=== PATIENT | female | born 1965 | race Caucasian/White ===

== ENCOUNTER 2016-09-09 00:48 | Emergency (ER) | payer OTHER ==
[2016-09-09 01:23] VITALS: BP 140/100; PULSE 87; TEMP 98; BMI 37.3
--- NOTE | 2016-09-09 02:05 | PDOC ---
History of Present Illness - General Chief Complaint: Alcohol intoxication Stated Complaint: ALCOHOL Time Seen by Provider: 09/09/16 01:06 - History of Present Illness Initial Comments: 09/09/16 02:35 presents intoxicated by EMS chronic etoh use had been drinking all day. also admits to benzo use without complaints fhx: non-contrib ros: reviewed and otherwise negative o/e intoxicated no diaphoresis no stigmata of head trauma neck nontender rrr cta abd nontender no extremity tenderness a+ox3 ambulatory in ED. a/p alcohol abuse observed in ED until sober ride home arranged Past History - Past Medical History Allergies/Adverse Reactions: Allergies Allergy/AdvReac Type Severity Reaction Status Date / Time morphine Allergy Mild Itching Verified 09/09/16 01:02 Home Medications: Ambulatory Orders Trazodone HCl [Desyrel -] 200 mg PO HS #7 tablet 03/08/14 Ramipril [Altace] 5 mg PO DAILY #0 capsule 09/14/14 Amlodipine Besylate [Norvasc -] 10 mg PO DAILY #30 tablet 05/14/15 Metoprolol Succinate [Toprol XL -] 100 mg PO DAILY 07/10/15 Oxycodone HCl [Roxicodone -] 15 mg PO BID 06/22/16 Pregabalin [Lyrica -] 50 mg PO BID 06/22/16 Anemia: No Asthma: No Cancer: No Cardiac Disorders: Yes (STOKE) CVA: No COPD: No CHF: No Dementia: No Diabetes: No GI Disorders: Yes (abdominal pain) Disorders: Yes (GALLSTONES) HTN: Yes Hypercholesterolemia: Yes Liver Disease: No Psychiatric Problems: Yes Seizures: No Thyroid Disease: Yes (NODULES - NO [place]) Other medical history: ANXIETY - Surgical History Abdominal Surgery: No Appendectomy: Yes Cardiac Surgery: No Cholecystectomy: No Lung Surgery: No Neurologic Surgery: Yes (NECK SX) Orthopedic Surgery: No - Reproductive History Tubal Ligation: Yes - Psycho/Social/Smoking Cessation Hx Anxiety: No Suicidal Ideation: No Smoking Status: Yes Smoking History: Current every day smoker Have you smoked in the past 12 months: Yes Number of Cigarettes Smoked Daily: 20 Cigars Per Day: 20 Information on smoking cessation initiated: Yes 'Breaking Loose' booklet given: 07/10/15 Hx Alcohol Use: Yes (DAILY) Drug/Substance Use Hx: Yes (MARIJUANA) Substance Use Type: None Hx Substance Use Treatment: No *Physical Exam - Vital Signs Last Vital Signs Temp Pulse Resp BP Pulse Ox 98 F 87 18 140/100 97 09/09/16 01:17 09/09/16 01:17 09/09/16 01:17 09/09/16 01:09/09/16 01:17 *DC/Admit/Observation/Transfer Diagnosis at time of Disposition: Alcohol abuse - Discharge Dispostion Disposition: HOME Condition at time of disposition: Stable
== END 2016-09-09 02:20 | disposition home or self-care (01) ==
LOC: FER 00:48
DX: F10.120 Alcohol abuse with intoxication, uncomplicated (principal); F17.210 Nicotine dependence, cigarettes, uncomplicated; F41.9 Anxiety disorder, unspecified; I10 Essential (primary) hypertension; Z86.73 Personal history of transient ischemic attack (TIA), and cerebral infarction without residual deficits; E07.9 Disorder of thyroid, unspecified; E78.00 Pure hypercholesterolemia, unspecified
CPT/HCPCS: 99281-25

== ENCOUNTER 2017-01-09 08:30 | Inpatient (IN) | payer OTHER ==
[2017-01-09] MEDS ORDERED: SODIUM CHLORIDE 1,000 ML IV STA ×3 (08:41→10:41)
--- NOTE | 2017-01-09 08:45 | PDOC ---
History of Present Illness - General Chief Complaint: Seizure Stated Complaint: POSSIBLE SEIZURE Time Seen by Provider: 01/09/17 08:33 History Source: Patient, EMS, Old Records Exam Limitations: Clinical Condition - History of Present Illness Initial Comments: 01/09/17 08:45 51-year-old female with history of HTN, nephrolithiasis, chronic opiate use/ abuse and seizure disorder presents to the emergency department by EMS who states that the patient this morning was found on the ground by her son foaming at the mouth and presumably to have had a seizure activity although no seizure was witnessed. History is limited as the son is not at the hospital and the patient is confused and mildly agitated. Past History - Past Medical History Allergies/Adverse Reactions: Allergies Allergy/AdvReac Type Severity Reaction Status Date / Time morphine Allergy Mild Itching Verified 09/09/16 01:02 Home Medications: Ambulatory Orders Trazodone HCl [Desyrel -] 200 mg PO HS #7 tablet 03/08/14 Ramipril [Altace] 5 mg PO DAILY #0 capsule 09/14/14 Amlodipine Besylate [Norvasc -] 10 mg PO DAILY #30 tablet 05/14/15 Metoprolol Succinate [Toprol XL -] 100 mg PO DAILY 07/10/15 Oxycodone HCl [Roxicodone -] 15 mg PO BID 06/22/16 Pregabalin [Lyrica -] 50 mg PO BID 06/22/16 Anemia: No Asthma: No Cancer: No Cardiac Disorders: Yes (STOKE) CVA: No COPD: No CHF: No Dementia: No Diabetes: No GI Disorders: Yes (abdominal pain) Disorders: Yes (GALLSTONES) HTN: Yes Hypercholesterolemia: Yes Liver Disease: No Psychiatric Problems: Yes Seizures: No Thyroid Disease: Yes (NODULES - NO [place]) - Surgical History Abdominal Surgery: No Appendectomy: Yes Cardiac Surgery: No Cholecystectomy: No Lung Surgery: No Neurologic Surgery: Yes (NECK SX) Orthopedic Surgery: No - Reproductive History Tubal Ligation: Yes - Psycho/Social/Smoking Cessation Hx Anxiety: No Suicidal Ideation: No Smoking Status: Yes Smoking History: Current every day smoker Have you smoked in the past 12 months: Yes Number of Cigarettes Smoked Daily: 20 Cigars Per Day: 20 'Breaking Loose' booklet given: 07/10/15 Hx Alcohol Use: Yes (DAILY) Drug/Substance Use Hx: Yes (MARIJUANA) Substance Use Type: None Hx Substance Use Treatment: No Review of Systems - Review of Systems Able to Perform ROS?: No (altered mental status) *Physical Exam - Physical Exam Comments: 01/09/17 08:44 GENERAL: Well developed, well nourished. Awake and alert. Uncooperative and confused. HEENT: Normocephalic, atraumatic. PERRLA, EOMI. No conjunctival pallor. Sclera are non- icteric. Mucous membranes are extremely dry appearing. Oropharynx is clear. NECK: Supple. Full ROM. No JVD. No lymphadenopathy. CARDIOVASCULAR: Regular rate and rhythm. No murmurs, rubs, or gallops. Distal pulses are 2+ and symmetric. PULMONARY: No evidence of respiratory distress. Lungs clear to auscultation bilaterally. No wheezing, rales or rhonchi. ABDOMINAL: Soft. Non-tender. Non-distended. No rebound or guarding. No organomegaly. Normoactive bowel sounds. MUSCULOSKELETAL Normal range of motion at all joints. No bony deformities or tenderness. No CVA tenderness. EXTREMITIES: No cyanosis. No clubbing. No edema. No calf tenderness. SKIN: Warm and dry. Normal capillary refill. No rashes. No jaundice. NEUROLOGICAL: Alert, awake, but confused and mildly agitated. Grossly non-focal exam. PSYCHIATRIC: Cooperative. Good eye contact. Appropriate mood and affect. ED Treatment Course - LABORATORY CBC & Chemistry Diagram: 01/09/17 09:10 01/09/17 09:10 Medical Decision Making - Medical Decision Making 01/09/17 08:42 51-year-old female with history of questionable seizure disorder and chronic opiate use presents to the emergency department with altered mental status and reported unwitnessed seizure at home today. Blood glucose in the field was 111. The patient appears dehydrated on clinical exam. Differential diagnosis includes but is not limited to: Postictal state status post seizure, intoxication, electrolyte abnormality, dehydration, traumatic brain injury, toxic/metabolic derangement. Plan: 1. CT head 2. EKG 3. Labs 4. IV fluids for hydration 5. Observe and reevaluate 01/09/17 10:43 Addendum: Labs are reviewed and are noted in the EMR. CT scan head shows no acute intracranial pathology. Chest x-ray was negative. EKG was negative as well. The CK is elevated at 1200. The patient is written for IV fluids for hydration for rhabdo. The plan is to admit to the hospital for IV fluid hydration, monitoring of the CK and neuro checks. *DC/Admit/Observation/Transfer Diagnosis at time of Disposition: Altered mental status, Rhabdomyolysis - Discharge Dispostion Condition at time of disposition: Stable Admit: Yes
[2017-01-09 09:50] LABS: BASOPHIL 0.1 % (0-2.0); MCH 33.1 pg (25.7-33.7); MCHC 33.9 g/dl (32.0-36.0); MEAN CELL VOLUME 97.5 fl (80-96); MEAN PLT VOLUME 9.3 fl (7.5-11.1); NEUTROPHILS 88.1 % (42.8-82.8); PLATELET COUNT 281 K/MM3 (134-434); RDW 13.2 % (11.6-15.6); WHITE BLOOD COUNT 17.2 K/mm3 (4.0-10.8)
[2017-01-09 09:59] LABS: PH,URINE 5.5 (4.5-8); URINE APPEARANCE Clear; URINE BILIRUBIN Negative (NEGATIVE); URINE GLUCOSE (UA) Trace (NEGATIVE); URINE KETONE Negative (NEGATIVE); URINE LEUK ESTERASE Negative (NEGATIVE); URINE NITRITE Negative (NEGATIVE); URINE PROTEIN Negative (NEGATIVE); URINE UROBILINOGEN 0.2 E.U/dl (0.2-1.0)
[2017-01-09 10:11] LABS: ALK PHOS 75 U/L (32-92); ANION GAP 12 (8-16); BILIRUBIN,TOTAL 0.4 mg/dl (0.2-1.0); CALCIUM 8.9 mg/dl (8.4-10.2); CO2 27 mmol/L (22-28); CREATININE 1.1 mg/dl (0.6-1.3); GLUCOSE,RANDOM 106 mg/dl (74-106); SGOT/AST 38 U/L (10-42); SGPT/ALT 24 U/L (10-40); TOT PROT 7.1 g/dl (6.4-8.3)
[2017-01-09 10:13] LABS: ALCOHOL < 5.0 mg/dl (0-5)
[2017-01-09 10:16] LABS: CPK(DFH) 1186 IU/L (26-140)
[2017-01-09 10:37] LABS: CK MB 27.7 ng/ml (0.3-4.0); TROPONIN I (DFP) 0.15 ng/ml (0.03-0.50)
[2017-01-09 10:53] LABS: URINE COLOR YELLOW
[2017-01-09 11:36] LABS: URINE MARIJUANA THC POSITIVE ng/ml (CUTOFF=50)
[2017-01-09] MEDS ORDERED: ONDANSETRON 4 MG/2 ML VIAL ONE (11:37)
[2017-01-09] MEDS ORDERED: ONDANSETRON 4 MG/2 ML VIAL IVPUSH ONE (11:43)
[2017-01-09 13:34] LABS: URINE BLOOD Trace-intact (NEGATIVE)
[2017-01-09] MEDS ORDERED: DEXTROSE 5%-NORMAL SALINE 1,000 ML IV SCH (13:45)
[2017-01-09] MEDS ORDERED: METHADONE HCL 10 MG TABLET ONE (15:04)
[2017-01-09] MEDS ORDERED: METHADONE 10 MG, METHADONE 40 MG PO ONE (15:15)
[2017-01-09 15:30] VITALS: BMI 35.2
[2017-01-09 15:37] LABS: BASOPHIL 0.2 % (0-2.0); EOSINOPHIL 0.1 % (0-4.5); MCH 33.2 pg (25.7-33.7); MCHC 34.2 g/dl (32.0-36.0); MEAN CELL VOLUME 97.2 fl (80-96); NEUTROPHILS 85.6 % (42.8-82.8); PLATELET COUNT 220 K/MM3 (134-434); RDW 13.4 % (11.6-15.6); WHITE BLOOD COUNT 12.8 K/mm3 (4.0-10.8)
[2017-01-09] MEDS ORDERED: amLODIPine BESYLATE 10 MG TABLET (FP) PO ONE (15:45)
[2017-01-09] MEDS ORDERED: METOPROLOL SUCCINATE 100 MG TAB.SR.24H (FP) PO ONE (15:45)
[2017-01-09] MEDS ORDERED: RAMIPRIL 5 MG CAPSULE (FP) PO ONE (15:45)
[2017-01-09 16:05] LABS: TROPONIN I (DFP) 0.23 ng/ml (0.03-0.50)
[2017-01-09 16:40] LABS: CK MB 45.8 ng/ml (0.3-4.0)
--- NOTE | 2017-01-09 17:52 | EKG ---
Test Reason : Blood Pressure : / mmHG Vent. Rate : 079 BPM Atrial Rate : 079 BPM P-R Int : 154 ms QRS Dur : 088 ms QT Int : 416 ms P-R-T Axes : 033 024 -11 degrees QTc Int : 477 ms NORMAL SINUS RHYTHM NONSPECIFIC T WAVE ABNORMALITY PROLONGED QT WHEN COMPARED WITH ECG OF 12-SEP-2014 11:39, T WAVE INVERSION MORE EVIDENT IN ANTERIOR LEADS Confirmed by MD DENNIS, NIK ([id number]) on 01/09/2017 5:51:46 PM Referred By: NEREYDA MARTINEZ Confirmed By:NIK COLLINS MD
[2017-01-09] MEDS ORDERED: NALOXONE HCL 0.4 MG/ML VIAL IVPUSH ONE (20:58)
[2017-01-09] MEDS ORDERED: ONDANSETRON 4 MG/2 ML VIAL IVPB ONE (21:15)
[2017-01-09 21:26] LABS: ALLENS TEST POSITIVE; ART PUNCT SITE RIGHT RADIAL; ARTERIAL BLD GAS O2 SATURATION 93.9 % (90-98.9); ARTERIAL BLOOD GAS BASE EXCESS -3.7 meq/l (-2-2); ARTERIAL BLOOD GAS PO2 82 mmHg (80-100); LPM/O2% 21%; PT. ON O2? NO; TYPE OF O2 ROOM AIR
[2017-01-09 21:27] LABS: ARTERIAL BLOOD GAS pH 7.19 (7.35-7.45)
--- NOTE | 2017-01-09 21:46 | HP ---
CHIEF COMPLAINT: Altered mental status PCP: Justyna [phone] HISTORY OF PRESENT ILLNESS: This is a 51 year old female with a significant past medical history of chronic opioid abuse on methadone and possible seizure history who was found by her son on the floor with foam around mouth, presumed post ictal. She was brought to the ED by ambulance. Pt was confused and mildly agitated in the ED. Upon exam on floor, pt noted with sonorous respirations, minimally arousable and confused. Oxygen saturation 50s-60s on room air. Given oxygen with some improvement in oxygenation. ABG done; results below. ER course was notable for: (1) CT head without acute changes (2) CK 1186, repeat 2040 (3) trop 0.15, repeat 0.23 (4) WBC 17.2, repeat 12.8 Recent Travel: pt denies PAST MEDICAL HISTORY: HTN nephrolithiasis chronic opiate abuse, on methadone CVA-nonhemorrhagic 2014 PAST SURGICAL HISTORY: appendectomy cervical spine fusion Social History: Smokinppd Alcohol: pt denies daily use, states she drink 2-3 drinks a few times/week Drugs: oxycodone, last use 13 days ago; marijuana daily Family History: mother-A&W father- age 68-heart 1 brother/2 sisters A&W Allergies morphine Allergy (Mild, Verified 09/09/16 01:02) Itching NEW ALLERGY HOME MEDICATIONS: 3 Medication Instructions Recorded Trazodone HCl [Desyrel -] 200 mg PO HS #7 tablet 03/08/14 Ramipril [Altace] 5 mg PO DAILY #0 capsule 09/14/14 Pregabalin [Lyrica -] 50 mg PO BID 06/22/16 Methadone [Dolophine -] 50 mg PO DAILY 01/09/17 REVIEW OF SYSTEMS CONSTITUTIONAL: Absent: fever, chills, diaphoresis, generalized weakness, malaise, loss of appetite, weight change HEENT: Absent: rhinorrhea, nasal congestion, throat pain, throat swelling, difficulty swallowing, mouth swelling, ear pain, eye pain, visual changes CARDIOVASCULAR: Absent: chest pain, syncope, palpitations, irregular heart rate, lightheadedness , peripheral edema RESPIRATORY: Absent: cough, shortness of breath, dyspnea with exertion, orthopnea, wheezing, stridor, hemoptysis GASTROINTESTINAL: Absent: abdominal pain, abdominal distension, nausea, vomiting, diarrhea, constipation, melena, hematochezia GENITOURINARY: Absent: dysuria, frequency, urgency, hesitancy, hematuria, flank pain, genital pain MUSCULOSKELETAL: Absent: myalgia, arthralgia, joint swelling, back pain, neck pain SKIN: Absent: rash, itching, pallor HEMATOLOGIC/IMMUNOLOGIC: Absent: easy bleeding, easy bruising, lymphadenopathy, frequent infections ENDOCRINE: Absent: unexplained weight gain, unexplained weight loss, heat intolerance, cold intolerance NEUROLOGIC: Present: mental status changes, seizure Absent: headache, focal weakness or paresthesias, dizziness, unsteady gait, bladder or bowel incontinence PSYCHIATRIC: Absent: anxiety, depression, suicidal or homicidal ideation, hallucinations. PHYSICAL EXAMINATION Vital Signs - 24 hr 3 01/09/17 01/09/17 01/09/17 14:22 15:18 16:35 Temperature 98.6 F Pulse Rate 82 76 Pulse Rate [ 85 Apical] Respiratory 18 16 Rate Blood Pressure 134/118 145/94 Blood Pressure 135/94 [Left Arm] O2 Sat by Pulse 97 94 L Oximetry (%) 3 01/09/17 20:12 Temperature Pulse Rate Pulse Rate [ Apical] Respiratory Rate Blood Pressure Blood Pressure [Left Arm] O2 Sat by Pulse 96 Oximetry (%) GENERAL: Arousable but pt immediately falls back in slumber, with sonorous repirations, able to follow simple one step commands before falling back asleep , not answering questions appropriately HEAD: Normal with no signs of trauma. EYES: Pupils equal, round and reactive to light, extraocular movements intact, sclera anicteric, conjunctiva clear. No lid lag. EARS, NOSE, THROAT: Ears normal, nares patent, oropharynx clear without exudates. Moist mucous membranes. NECK: Normal range of motion, supple without lymphadenopathy, JVD, or masses. LUNGS: Breath sounds equal, clear to auscultation bilaterally. No wheezes, and no crackles. No accessory muscle use. + upper airway noise, bradypnea noted HEART: Regular rate and rhythm, normal S1 and S2 without murmur, rub or gallop. ABDOMEN: Soft, nontender, not distended, normoactive bowel sounds, no guarding, no rebound, no masses. No hepatomegaly or splenomegaly. MUSCULOSKELETAL: Normal range of motion at all joints. No bony deformities or tenderness. No CVA tenderness. UPPER EXTREMITIES: 2+ pulses, warm, well-perfused. No cyanosis. No clubbing. No peripheral edema. LOWER EXTREMITIES: 2+ pulses, warm, well-perfused. No calf tenderness. No peripheral edema. NEUROLOGICAL: Cranial nerves II-XII intact. Normal speech. Normal gait. PSYCHIATRIC: Cooperative. Good eye contact. Appropriate mood and affect. SKIN: Warm, dry, normal turgor, no rashes or lesions noted, normal capillary refill. Laboratory Results - last 24 hr 3 01/09/17 01/09/17 01/09/17 09:10 09:10 09:10 WBC 17.2 H RBC 4.45 Hgb 14.7 D Hct 43.4 D MCV 97.5 H MCHC 33.9 RDW 13.2 Plt Count 281 MPV 9.3 Neutrophils % 88.1 H Lymphocytes % 7.2 L D Monocytes % 4.6 Eosinophils % 0.0 D Basophils % 0.1 Anticoagulation Therapy Puncture Site ABG pH ABG pCO2 at Pt Temp ABG pO2 at Pt Temp ABG HCO3 ABG O2 Sat (Measured) ABG O2 Content ABG Base Excess Winston Test O2 Delivery Device Oxygen Flow Rate Vent Mode Vent Rate Mechanical Rate Pressure Support Vent Sodium Potassium Chloride Carbon Dioxide Anion Gap BUN Creatinine Creat Clearance w eGFR Random Glucose Lactic Acid Calcium Total Bilirubin AST ALT Alkaline Phosphatase Creatine Kinase Creatine Kinase Index CK-MB (CK-2) Troponin I Total Protein Albumin Lipase Urine Color Yellow Urine Appearance Clear Urine pH 5.5 Ur Specific Guthrie 1.020 Urine Protein Negative Urine Glucose (UA) Trace Urine Ketones Negative Urine Blood Trace-intact Urine Nitrite Negative Urine Bilirubin Negative Urine Urobilinogen 0.2 e.u/dl Ur Leukocyte Esterase Negative Opiates Screen Positive Methadone Screen Positive Barbiturate Screen Negative Phenytoin Phencyclidine Screen Negative Ur Amphetamines Screen Negative MDMA (Ecstasy) Screen Negative Benzodiazepines Screen Negative Cocaine Screen Negative U Marijuana (THC) Screen Positive Alcohol, Quantitative 3 01/09/17 01/09/17 01/09/17 01/09/17 09:10 09:10 09:10 10:00 WBC RBC Hgb Hct MCV MCHC RDW Plt Count MPV Neutrophils % Lymphocytes % Monocytes % Eosinophils % Basophils % Anticoagulation Therapy Puncture Site ABG pH ABG pCO2 at Pt Temp ABG pO2 at Pt Temp ABG HCO3 ABG O2 Sat (Measured) ABG O2 Content ABG Base Excess Winston Test O2 Delivery Device Oxygen Flow Rate Vent Mode Vent Rate Mechanical Rate Pressure Support Vent Sodium 140 Potassium 5.2 H Chloride 101 Carbon Dioxide 27 Anion Gap 12 BUN 18 D Creatinine 1.1 D Creat Clearance w eGFR 51.96 Random Glucose 106 Lactic Acid 1.6 Calcium 8.9 Total Bilirubin 0.4 D AST 38 D ALT 24 D Alkaline Phosphatase 75 Creatine Kinase 1186 H D Creatine Kinase Index CK-MB (CK-2) 27.7 H Troponin I 0.15 Total Protein 7.1 Albumin 4.0 Lipase 23 Urine Color Urine Appearance Urine pH Ur Specific Guthrie Urine Protein Urine Glucose (UA) Urine Ketones Urine Blood Urine Nitrite Urine Bilirubin Urine Urobilinogen Ur Leukocyte Esterase Opiates Screen Methadone Screen Barbiturate Screen Phenytoin < 2.5 L Phencyclidine Screen Ur Amphetamines Screen MDMA (Ecstasy) Screen Benzodiazepines Screen Cocaine Screen U Marijuana (THC) Screen Alcohol, Quantitative < 5.0 3 01/09/17 01/09/17 01/09/17 14:18 14:18 20:50 WBC 12.8 H RBC 4.13 Hgb 13.7 Hct 40.1 MCV 97.2 H MCHC 34.2 RDW 13.4 Plt Count 220 D MPV 9.0 Neutrophils % 85.6 H Lymphocytes % 9.3 D Monocytes % 4.8 Eosinophils % 0.1 D Basophils % 0.2 O2 Delivery Device Y Creatine Kinase 2040 H D CK-MB (CK-2) 45.8 H Troponin I 0.23 3 01/09/17 01/09/17 01/09/17 16:00 20:50 21:20 WBC RBC Hgb Hct MCV MCHC RDW Plt Count MPV Neutrophils % Lymphocytes % Monocytes % Eosinophils % Basophils % Anticoagulation Therapy Puncture Site ABG pH ABG pCO2 at Pt Temp ABG pO2 at Pt Temp ABG HCO3 ABG O2 Sat (Measured) ABG O2 Content ABG Base Excess Winston Test O2 Delivery Device Y Oxygen Flow Rate Vent Mode Vent Rate Mechanical Rate Pressure Support Vent Sodium 138 Potassium 4.8 Chloride 104 Carbon Dioxide 25 Anion Gap 9 BUN 15 Creatinine 1.0 Creat Clearance w eGFR Random Glucose 151 H D Lactic Acid Calcium 8.4 Total Bilirubin AST ALT Alkaline Phosphatase Creatine Kinase Creatine Kinase Index Cancelled CK-MB (CK-2) Troponin I Total Protein Albumin Lipase Urine Color Urine Appearance Urine pH Ur Specific Guthrie Urine Protein Urine Glucose (UA) Urine Ketones Urine Blood Urine Nitrite Urine Bilirubin Urine Urobilinogen Ur Leukocyte Esterase Opiates Screen Methadone Screen Barbiturate Screen Phenytoin Phencyclidine Screen Ur Amphetamines Screen MDMA (Ecstasy) Screen Benzodiazepines Screen Cocaine Screen U Marijuana (THC) Screen Alcohol, Quantitative 3 01/09/17 21:23 WBC RBC Hgb Hct MCV MCHC RDW Plt Count MPV Neutrophils % Lymphocytes % Monocytes % Eosinophils % Basophils % Anticoagulation Therapy Y Puncture Site Right radial ABG pH 7.19 L* ABG pCO2 at Pt Temp 71.4 H* ABG pO2 at Pt Temp 82 ABG HCO3 26.0 ABG O2 Sat (Measured) 93.9 ABG O2 Content 17.5 ABG Base Excess -3.7 L Winston Test Positive O2 Delivery Device Room air Oxygen Flow Rate 21% Vent Mode Y Vent Rate Y Mechanical Rate Y Pressure Support Vent Y Sodium Potassium Chloride Carbon Dioxide Anion Gap BUN Creatinine Creat Clearance w eGFR Random Glucose Lactic Acid Calcium Total Bilirubin AST ALT Alkaline Phosphatase Creatine Kinase Creatine Kinase Index CK-MB (CK-2) Troponin I Total Protein Albumin Lipase Urine Color Urine Appearance Urine pH Ur Specific Guthrie Urine Protein Urine Glucose (UA) Urine Ketones Urine Blood Urine Nitrite Urine Bilirubin Urine Urobilinogen Ur Leukocyte Esterase Opiates Screen Methadone Screen Barbiturate Screen Phenytoin Phencyclidine Screen Ur Amphetamines Screen MDMA (Ecstasy) Screen Benzodiazepines Screen Cocaine Screen U Marijuana (THC) Screen Alcohol, Quantitative Imaging CT of the head without IV contrast HISTORY: 51-year-old female with mental status TECHNIQUE: Multiaxial CT scan of the head without IV contrast was obtained from the base of the skull to the vertex. Comparison is made to prior study dated September 12 2014 FINDINGS: Study is limited by patient motion. There is an old left frontoparietal infarct with secondary encephalomalacia. There is a lacunar infarct in the left frontal boeyr radiata. The sulcal pattern and ventricles systems are within normal limits. Evaluation of the inferior aspect of the frontal, middle and posterior fossa is limited due to streak artifacts. The visualized portions of the bony skull, mastoid air cells and paranasal sinuses are unremarkable. IMPRESSION: No CT evidence of acute intracranial pathology. 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 CHEST X-RAY PORTABLE* Altered mental status. Single portable chest x-ray. Comparison study May 11, 2015. No evidence of pneumonia, CHF, pleural effusion or pneumothorax. No evidence of widening of the superior mediastinum. Uncoiled thoracic aorta. The cardiac silhouette is borderline enlarged. Surgical clips noted in the left axillary region. Intact visualized osseous structures. Impression. No evidence of active pulmonary disease. ECG NSR Rate 82, QTC 474, nonspecific T wave changes, Inversion in 3, aVF, V3, flattenting V4, V5 ASSESSMENT/PLAN: 51yF with PMH HTN, chronic opioid abuse, CVA, ? seizure d/o, nephrolithiasis presented to the ED with AMS. She has been admitted for further workup. Pulm Respiratory failure - oxygen given, sat up to low 90s but pt remains confused and minimally arousable, not protecting airway - ABG done - naloxone 0.4mg given as pt falls back to sleep and not protecting airway, sat dropping back into 80s. - hypoxia resolved after naloxone - ABG with pH 7.18, hypercapnea- pt initially refused BiPAP but finally acquiesced, 12/5, oxygen 40%, satting 100% with same, oxygen reduced to 98% - transfer to [facility] for closer monitoring - repeat ABG 1-2H post BiPAP initiation. Neuro AMS - ? seizure activity at home - acute episode AMS improved s/p narcan, monitor closely for further deterioration - will obtain neurology consult Neuropathy - cont prescribed home lyrica Cardio Elevated troponin - troponin trending up. Pt denies chest pain, palpitations when fully awake. Will cont to trend, likely due to demand in setting of acute illness - pt states she is not on norvasc or toprol at home. - cardiology consult HTN - BP improved with ramipril, cont same M/S rhabdomyolysis - cont IVF, ? due to seizure activity - monitor urine output detox opioid dependence - narcan given due to respiratory failure with good response. Pt pupils dilated and vomited. zofran given for same. Pt now alert and oriented - pt adamantly denies taking anything other than prescribed methadone here. Denies receiving her dose at home this am - hold methadone for now, pt states she has been on methadone x 13 days only. - detox consult DVT PPX - heparin 5000u TID FEN - NS @ 100cc/hr - repeat BMP in AM - regular diet in am if alert Dispo: Pt currently requires inpatient management of her emergent condition. Visit type - Emergency Visit Emergency Visit: Yes ED Registration Date: 01/09/17 Care time: The patient presented to the Emergency Department on the above date and was hospitalized for further evaluation of their emergent condition. - New Patient This patient is new to me today: Yes Date on this admission: 01/10/17 - Critical Care Critical Care patient: Yes Total Critical Care Time (in minutes): 60 Critical Care Statement: The care of this patient involved high complexity decision making to prevent further life threatening deterioration of the patient 's condition and/or to evalute & treat vital organ system(s) failure or risk of failure.
[2017-01-09 21:50] LABS: CALCIUM 8.4 mg/dl (8.4-10.2); COCKROFT - GAULT 95.4975
[2017-01-09] MEDS: PREGABALIN 50 MG CAPSULE PO SCH (21:58)
[2017-01-09 22:06] LABS: BASOPHIL 0.5 % (0-2.0); EOSINOPHIL 0.1 % (0-4.5); MCHC 33.6 g/dl (32.0-36.0); MEAN CELL VOLUME 98.1 fl (80-96); NEUTROPHILS 82.8 % (42.8-82.8); PLATELET COUNT 244 K/MM3 (134-434); RDW 13.2 % (11.6-15.6); WHITE BLOOD COUNT 15.6 K/mm3 (4.0-10.8)
[2017-01-09 22:09] LABS: MAGNESIUM 1.9 mg/dL (1.8-2.4); PHOSPHOROUS 4.4 mg/dl (2.5-4.6)
[2017-01-09 22:22] LABS: TROPONIN I (DFP) 0.34 ng/ml (0.03-0.50)
[2017-01-09 22:23] LABS: CK MB 47.4 ng/ml (0.3-4.0)
[2017-01-10] MEDS ORDERED: SODIUM CHLORIDE 500 ML IV STA
[2017-01-10] MEDS: SODIUM CHLORIDE 1,000 ML IV SCH (00:15)
[2017-01-10 00:23] LABS: ARTERIAL BLOOD GAS PO2 38.6 mmHg (80-100); ARTERIAL BLOOD GAS pH 7.32 (7.35-7.45)
[2017-01-10 00:24] LABS: ALLENS TEST POSITIVE; ART PUNCT SITE RIGHT RADIAL; ARTERIAL BLD GAS O2 SATURATION 67.6 % (90-98.9); ARTERIAL BLOOD GAS BASE EXCESS 1.3 meq/l (-2-2); ARTERIAL BLOOD GAS HCO3 28.1 meq/L (22-26); LPM/O2% 35%; MECH. VENT. Y; PT. ON O2? YES; TYPE OF O2 BIPAP; VENT RATE 12; VT/PRESS 12
[2017-01-10] MEDS ORDERED: METHADONE 10 MG, METHADONE 40 MG PO SCH (06:00)
[2017-01-10] MEDS ORDERED: ALBUTEROL SO4 2.5/IPRATROPIUM 0.5 INH SOL 3 ML VIAL.NEB. NEB PRN (06:38)
[2017-01-10] MEDS: CEFTRIAXONE 50 ML IVPB SCH ×2 (06:54→09:19)
[2017-01-10] MEDS: AZITHROMYCIN IVPB 250 ML IVPB SCH ×2 (08:09→11:11)
[2017-01-10] MEDS ORDERED: METOCLOPRAMIDE HCL INJECTION 10 MG/2 ML VIAL IVPB ONE (08:29)
[2017-01-10] MEDS: PREGABALIN 50 MG CAPSULE PO SCH ×2 (09:20→21:54)
[2017-01-10] MEDS ORDERED: amLODIPine BESYLATE 10 MG TABLET (FP) PO SCH (10:00)
[2017-01-10] MEDS ORDERED: METHADONE HCL 40 MG DISPERSABLE TABLET PO SCH (10:00)
[2017-01-10] MEDS ORDERED: METOPROLOL SUCCINATE 100 MG TAB.SR.24H (FP) PO SCH (10:00)
[2017-01-10] MEDS: RAMIPRIL 5 MG CAPSULE (FP) PO SCH (10:18)
--- NOTE | 2017-01-10 11:20 | CON.CARD ---
Cardiology Consult (text) - Consultation Consultation Note: cc: ams hpi: 51 f hx htn, dm, hld, cva, drug abuse, here with ams. Found at home on floor, possibly had seizure. Pt does not recall events. Was given narcan and MS improved. Currently feeling better. No hx hrt dz. No cp, sob, palps, dizzy , pnd, orthopnea, le edema. Getting ivfs for rhabdo now. pmh: per hpi psh: social: +tob, +MJ, +opioid abuse ros: per hpi; no diarrhea, BUITRAGO, vision changes, +muscle pains, no gib, no hematuria, no rash fam: no premature cad or scd meds: Home Medications Medication Instructions Recorded Trazodone HCl [Desyrel -] 200 mg PO HS #7 tablet 03/08/14 Ramipril [Altace] 5 mg PO DAILY #0 capsule 09/14/14 Amlodipine Besylate [Norvasc -] 10 mg PO DAILY #30 tablet 05/14/15 Metoprolol Succinate [Toprol XL -] 100 mg PO DAILY 07/10/15 Oxycodone HCl [Roxicodone -] 15 mg PO BID 06/22/16 Pregabalin [Lyrica -] 50 mg PO BID 06/22/16 Methadone [Dolophine -] 50 mg PO DAILY 01/09/17 pe: Vital Signs Period Temp Pulse Resp BP Sys/Hitchcock Pulse Ox Last 24 Hr 97.9 F-98.8 F 70-94 16-22 110-154/70-118 94-98 nad no jvd rrr s1s2 no mrg cta bl nl eff aaox3 no le e/c/c abd nt nd pos bs no jaundice diaphoresis pos dp pt no carotid brtuits Laboratory Last Values WBC 15.6 K/mm3 (4.0-10.8) H 01/09/17 21:20 RBC 4.37 M/mm3 (3.60-5.2) 01/09/17 21:20 Hgb 14.4 GM/dl (10.7-15.3) 01/09/17 21:20 Hct 42.9 % (32.4-45.2) 01/09/17 21:20 MCV 98.1 fl (80-96) H 01/09/17 21:20 MCHC 33.6 g/dl (32.0-36.0) 01/09/17 21:20 RDW 13.2 % (11.6-15.6) 01/09/17 21:20 Plt Count 244 K/MM3 (134-434) 01/09/17 21:20 MPV 9.0 fl (7.5-11.1) 01/09/17 21:20 Neutrophils % 82.8 % (42.8-82.8) 01/09/17 21:20 Lymphocytes % 10.4 % (8-40) 01/09/17 21:20 Monocytes % 6.2 % (3.8-10.2) 01/09/17 21:20 Eosinophils % 0.1 % (0-4.5) 01/09/17 21:20 Basophils % 0.5 % (0-2.0) 01/09/17 21:20 Anticoagulation Therapy Y 01/09/17 23:00 Puncture Site Right radial 01/09/17 23:00 ABG pH 7.32 (7.35-7.45) L 01/09/17 23:00 ABG pCO2 at Pt Temp 56.6 mmHg (35-45) H 01/09/17 23:00 ABG pO2 at Pt Temp 38.6 mmHg (80-100) L* 01/09/17 23:00 ABG HCO3 28.1 meq/L (22-26) H 01/09/17 23:00 ABG O2 Sat (Measured) 67.6 % (90-98.9) L* 01/09/17 23:00 ABG O2 Content 12.1 % vol (15-22) L 01/09/17 23:00 ABG Base Excess 1.3 meq/l (-2-2) 01/09/17 23:00 Winston Test Positive 01/09/17 23:00 O2 Delivery Device Bipap 01/09/17 23:00 Oxygen Flow Rate 35% 01/09/17 23:00 Vent Mode S/t 01/09/17 23:00 Vent Rate 12 01/09/17 23:00 Mechanical Rate Y 01/09/17 23:00 PEEP 5.0 cmH2O 01/09/17 23:00 Pressure Support Vent 12 01/09/17 23:00 Sodium 138 mmol/L (136-145) 01/09/17 21:20 Potassium 4.8 mmol/L (3.5-5.1) 01/09/17 21:20 Chloride 104 mmol/L (98-107) 01/09/17 21:20 Carbon Dioxide 25 mmol/L (22-28) 01/09/17 21:20 Anion Gap 9 (8-16) 01/09/17 21:20 BUN 15 mg/dl (7-18) 01/09/17 21:20 Creatinine 1.0 mg/dl (0.6-1.3) 01/09/17 21:20 Creat Clearance w eGFR 51.96 (>60) 01/09/17 09:10 Random Glucose 151 mg/dl (74-106) H D 01/09/17 21:20 Lactic Acid 0.7 mmol/L (0.4-2.0) 01/10/17 04:22 Calcium 8.4 mg/dl (8.4-10.2) 01/09/17 21:20 Phosphorus 4.4 mg/dl (2.5-4.6) 01/09/17 21:20 Magnesium 1.9 mg/dL (1.8-2.4) 01/09/17 21:20 Total Bilirubin 0.4 mg/dl (0.2-1.0) D 01/09/17 09:10 AST 38 U/L (10-42) D 01/09/17 09:10 ALT 24 U/L (10-40) D 01/09/17 09:10 Alkaline Phosphatase 75 U/L (32-92) 01/09/17 09:10 Creatine Kinase 2374 IU/L (26-140) H 01/09/17 21:20 Creatine Kinase Index Cancelled 01/09/17 16:00 CK-MB (CK-2) 47.4 ng/ml (0.3-4.0) H 01/09/17 21:20 Troponin I 0.34 ng/ml (0.03-0.50) 01/09/17 21:20 Total Protein 7.1 g/dl (6.4-8.3) 01/09/17 09:10 Albumin 4.0 g/dl (3.5-5.0) 01/09/17 09:10 Lipase 23 U/L (22-51) 01/09/17 09:10 Urine Color Yellow 01/09/17 09:10 Urine Appearance Clear 01/09/17 09:10 Urine pH 5.5 (4.5-8) 01/09/17 09:10 Ur Specific [place] 1.020 (1.005-1.025) 01/09/17 09:10 Urine Protein Negative (NEGATIVE) 01/09/17 09:10 Urine Glucose (UA) Trace (NEGATIVE) 01/09/17 09:10 Urine Ketones Negative (NEGATIVE) 01/09/17 09:10 Urine Blood Trace-intact (NEGATIVE) 01/09/17 09:10 Urine Nitrite Negative (NEGATIVE) 01/09/17 09:10 Urine Bilirubin Negative (NEGATIVE) 01/09/17 09:10 Urine Urobilinogen 0.2 e.u/dl (0.2-1.0) 01/09/17 09:10 Ur Leukocyte Esterase Negative (NEGATIVE) 01/09/17 09:10 Opiates Screen Positive ng/ml (MBMPXI=907) 01/09/17 09:10 Methadone Screen Positive ng/ml (PBJJZA=491) 01/09/17 09:10 Barbiturate Screen Negative ng/ml (OSJJPL=552) 01/09/17 09:10 Phenytoin < 2.5 ug/ml (10.0-20.0) L 01/09/17 09:10 Phencyclidine Screen Negative ng/ml (CUTOFF=25) 01/09/17 09:10 Ur Amphetamines Screen Negative ng/ml (WZLEAO=850) 01/09/17 09:10 MDMA (Ecstasy) Screen Negative ng/ml (SNWFWB=644) 01/09/17 09:10 Benzodiazepines Screen Negative ng/ml (HWXKVJ=404) 01/09/17 09:10 Cocaine Screen Negative ng/ml (SQFUGO=765) 01/09/17 09:10 U Marijuana (THC) Screen Positive ng/ml (CUTOFF=50) 01/09/17 09:10 Alcohol, Quantitative < 5.0 mg/dl (0-5) 01/09/17 09:10 echo 09/2014: tds, nl lv/rv, no sig valve path, mild ao root dil tele: sr cxr: clear lungs ecg 01/09/17: sr, nl intervals, no ischemic changes a/p: 51 f hx htn, dm, hld, cva, drug abuse, here with ams. ams: -possible seizure vs drug overdose, plans per PMD htn: -cont madalyn, monitor bp hld: -hold statin given current rhabdo cva: -no acute findings on ct head here drug abuse: -cessation discussed abnl cardiac markers: -total ck is elevated as well as ck mb but ckmb index is normal. trop has upwards trend but three serial values remain in normal range. -these lab values are not consistent with acs, in this case seem to be related to rhabdo, cont ivfs.
--- NOTE | 2017-01-10 13:11 | CONSULT ---
Consult Detox [facility] Reason for Current Admission/Consult: Opioid dependence on agonist therapy Referred by:: Kamryn Booker NP - History History of Present Illness: 51 y/o woman currently attending O[facility] at [facility]. is seen to renew methadone.Note is made of the fact that pt. had to receive narcan on 01/09/17. Pt. agrees to our plan,which is to give her Methadone 20mg today & 30mg starting 01/11/17. - Alcohol/Substance Use Hx Alcohol Use: Yes (DAILY) - Past Medical History Cardio/Vascular: Yes: HTN, Hyperlipdemia Gastrointestinal: Yes: Other (dyspepsia) Renal/: Yes: UTI Psych: Yes: Other (unspec affective dz) - Past Surgical History Past Surgical History: Yes: Appendectomy,
[2017-01-10] MEDS ORDERED: METHADONE HCL 10 MG TABLET PO ONE (13:45)
--- NOTE | 2017-01-10 14:59 | PN ---
Progress Note (short form) - Note Progress Note: Subjective: The patient was seen and examined at the bedside, she reports feeling good. She is alert and oriented x3. She reports her last Oxycodone and Heroin use was 14 days ago. Started on Methadone per detox specialist Current Medications Generic Name Dose Route Start Last Admin Trade Name Freq PRN Reason Stop Dose Admin Albuterol/Ipratropium 1 amp 01/10/17 06:38 01/10/17 06:45 Duoneb - NEB 1 amp Q4H PRN Administration SHORTNESS OF BREATH Sodium Chloride 1,000 mls @ 100 mls/hr 01/10/17 00:00 01/10/17 00:15 Normal Saline - IV 100 mls/hr ASDIR PATRICIA Administration Ceftriaxone Sodium 50 mls @ 100 mls/hr 01/10/17 06:45 01/10/17 09:19 Rocephin 1gm Ivpb (Pre-Docked) IVPB 100 mls/hr DAILY PATRICIA Administration Azithromycin 250 mg/ Dextrose 250 mls @ 250 mls/hr 01/11/17 10:00 IVPB DAILY PATRICIA Methadone HCl 30 mg 01/11/17 06:00 Dolophine - PO DAILY@0600 PATRICIA Pregabalin 50 mg 01/09/17 22:00 01/10/17 09:20 Lyrica - PO Not Given BID PATRICIA Ramipril 5 mg 01/10/17 10:00 01/10/17 10:18 Altace - PO 5 mg DAILY PATRICIA Administration Objective: Vital Signs Period Temp Pulse Resp BP Sys/Hitchcock Pulse Ox Last 24 Hr 97.9 F-98.8 F 67-94 16-22 110-154/70-91 94-98 Physical Exam: General: NAD, A&Ox3 Lungs: CTA bilaterally Heart: RRR, S1S2 Patient refused remainder of exam CBCD WBC 15.6 K/mm3 (4.0-10.8) H 01/09/17 21:20 RBC 4.37 M/mm3 (3.60-5.2) 01/09/17 21:20 Hgb 14.4 GM/dl (10.7-15.3) 01/09/17 21:20 Hct 42.9 % (32.4-45.2) 01/09/17 21:20 MCV 98.1 fl (80-96) H 01/09/17 21:20 MCHC 33.6 g/dl (32.0-36.0) 01/09/17 21:20 RDW 13.2 % (11.6-15.6) 01/09/17 21:20 Plt Count 244 K/MM3 (134-434) 01/09/17 21:20 MPV 9.0 fl (7.5-11.1) 01/09/17 21:20 CMP Sodium 138 mmol/L (136-145) 01/09/17 21:20 Potassium 4.8 mmol/L (3.5-5.1) 01/09/17 21:20 Chloride 104 mmol/L (98-107) 01/09/17 21:20 Carbon Dioxide 25 mmol/L (22-28) 01/09/17 21:20 Anion Gap 9 (8-16) 01/09/17 21:20 BUN 15 mg/dl (7-18) 01/09/17 21:20 Creatinine 1.0 mg/dl (0.6-1.3) 01/09/17 21:20 Creat Clearance w eGFR 51.96 (>60) 01/09/17 09:10 Random Glucose 151 mg/dl (74-106) H D 01/09/17 21:20 Calcium 8.4 mg/dl (8.4-10.2) 01/09/17 21:20 Total Bilirubin 0.4 mg/dl (0.2-1.0) D 01/09/17 09:10 AST 38 U/L (10-42) D 01/09/17 09:10 ALT 24 U/L (10-40) D 01/09/17 09:10 Alkaline Phosphatase 75 U/L (32-92) 01/09/17 09:10 Total Protein 7.1 g/dl (6.4-8.3) 01/09/17 09:10 Albumin 4.0 g/dl (3.5-5.0) 01/09/17 09:10 CARDIAC ENZYMES Creatine Kinase 2374 IU/L (26-140) H 01/09/17 21:20 Troponin I 0.34 ng/ml (0.03-0.50) 01/09/17 21:20 Microbiology 01/09/17 10:00 Blood - Peripheral Venous Blood Culture - Preliminary NO GROWTH OBTAINED AFTER 24 HOURS, INCUBATION TO CONTINUE FOR 4 DAYS. 01/09/17 10:00 Blood - Peripheral Venous Blood Culture - Preliminary NO GROWTH OBTAINED AFTER 24 HOURS, INCUBATION TO CONTINUE FOR 4 DAYS. Assessment: This is a 51 year old female with PMHx of HTN, chronic opioid abuse (heroin and oxycodone), CVA, nephrolithiasis, who presented to the ED with altered mental status requiring Narcan. Plan: 1) MSK: Rhabdomyolysis - Continue IV fluids - Patient refused labs this morning, was unable to check CK level 2) Pulmonary: Acute respiratory failure 2/2 possible methadone overdose - Patient's respiratory status improved with Narcan - Patient refused ABG this AM - Continue to monitor 3) Neuro: AMS - Seizure vs. methadone overdose vs. TIA - Symptoms resolved, patient now A&Ox3 - Acute AMS resolved after receiving Narcan - Patient refusing ECHO, carotid dopplers - F/u neuro consult Hx of CVA - Head CT with no evidence of acute intracranial pathology - Old left frontoparietal cortical infarct and left boyer radiata lacunar infarct - Hold statin 2/2 rhabdo 4) Cardiology: Boarderline elevated troponins - Patient denies any chest pain, unlikely acs per cards HTN - Continue Ramipril 5) Psych: Opioid dependence - Per Dr. Yaniv Good, restart lower dose of Methadone - Continue to monitor 6) F/E/N: - Sodium controlled diet - Monitor electrolytes (patient refused labs today) 7) Prophylaxis: - OOB ambulating - Heparin 5,000u sq tid 8) Dispo: - Requires continued inpatient care CODE STATUS: FULL CODE Visit type - Emergency Visit Emergency Visit: Yes ED Registration Date: 01/09/17 Care time: The patient presented to the Emergency Department on the above date and was hospitalized for further evaluation of their emergent condition. - New Patient This patient is new to me today: Yes Date on this admission: 01/10/17 - Critical Care Critical Care patient: No
--- NOTE | 2017-01-10 19:03 | CON.NEURO ---
Consult - History of Present Illness History of Present Illness: found to be altered mental status 51 year old female history of htn , opioid abuse in past and on methadone 50 mg once a day ( started 13 days ago) . she was found on floor and brought to hospital. No history of seizures. as per patient she has history of brain bleed due to htn and was admitted at [facility]. Not on any seizure medication. There was no incontinence or tongue bite and she perked up after giving narcan At this time she is back to her self and no sleepiness or breathing problem - Past Medical History Cardio/Vascular: Yes: HTN, Hyperlipdemia Gastrointestinal: Yes: Other (dyspepsia) Renal/: Yes: UTI Psych: Yes: Other (unspec affective dz) - Past Surgical History Past Surgical History: Yes: Appendectomy, - Alcohol/Substance Use Hx Alcohol Use: Yes (DAILY) History of Substance Use: reports: Marijuana (substance abuse reported.) - Smoking History Smoking history: Current every day smoker Have you smoked in the past 12 months: Yes Aproximately how many cigarettes per day: 20 - Social History ADL: Independent 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 History of Recent Travel: No Home Medications - Allergies Allergies/Adverse Reactions: Allergies Allergy/AdvReac Type Severity Reaction Status Date / Time morphine Allergy Mild Itching Verified 09/09/16 01:02 - Home Medications Home Medications: Ambulatory Orders Trazodone HCl [Desyrel -] 200 mg PO HS #7 tablet 03/08/14 Ramipril [Altace] 5 mg PO DAILY #0 capsule 09/14/14 Amlodipine Besylate [Norvasc -] 10 mg PO DAILY #30 tablet 05/14/15 Metoprolol Succinate [Toprol XL -] 100 mg PO DAILY 07/10/15 Oxycodone HCl [Roxicodone -] 15 mg PO BID 06/22/16 Pregabalin [Lyrica -] 50 mg PO BID 06/22/16 Methadone [Dolophine -] 50 mg PO DAILY 01/09/17 Family Disease History - Family Disease History Family Disease History: Other: Father (GB disease) Physical Exam-Neuro Vital Signs: Vital Signs Temperature 98.5 F 01/10/17 18:00 Pulse Rate 69 01/10/17 18:00 Respiratory Rate 20 01/10/17 18:00 Blood Pressure 140/95 01/10/17 18:00 O2 Sat by Pulse Oximetry (%) 94 L 01/10/17 17:18 Labs: CBC, BMP 01/09/17 21:20 01/09/17 21:20 NIH Stroke Scale - Total Score NIH Stroke Scale Score: 0 Imaging - Results Cat Scan: Report Reviewed Assessment/Plan cc found to be altered mental status 51 year old female history of htn , opioid abuse in past and on methadone 50 mg once a day ( started 13 days ago) . she was found on floor and brought to hospital. No history of seizures. as per patient she has history of brain bleed due to htn and was admitted at [facility]. Not on any seizure medication. There was no incontinence or tongue bite and she perked up after giving narcan At this time she is back to her self and no sleepiness or breathing problem Past Medical History as above Allergies Allergy/AdvReac Type Severity Reaction Status Date / Time morphine Allergy Mild Itching Verified 09/09/16 01:02 Home Medications: Ambulatory Orders Trazodone HCl [Desyrel -] 200 mg PO HS #7 tablet 03/08/14 Ramipril [Altace] 5 mg PO DAILY #0 capsule 09/14/14 Amlodipine Besylate [Norvasc -] 10 mg PO DAILY #30 tablet 05/14/15 Metoprolol Succinate [Toprol XL -] 100 mg PO DAILY 07/10/15 Oxycodone HCl [Roxicodone -] 15 mg PO BID 06/22/16 Pregabalin [Lyrica -] 50 mg PO BID 06/22/16 NEUROLOGICAL EXAMINATION MS uzair oriented x 3 CN all intact, eomi and no face asymmetry Motor 5/5 all ext sensation is normal ct is normal Assessment-- Most likley AMS due to opioid overdose , unlikley to be seizure Plan - 1. No need for MRI of brain or EEG 2. no need for anti epileptic medication 3. she has her own neurologist , she can follow up with them please feel free to call me if you have any question Andrew Mendosa MD Neurology Attending
[2017-01-10] MEDS: HEPARIN NA (PORCINE) 5,000 UNITS/ML 1ML VIAL SQ SCH (21:54)
--- NOTE | 2017-01-11 00:22 | HOSP ---
Subjective - Review of Symptoms Events since last encounter: Hospitalist Encounter Notified by the primary RN, that the patient was having dry heaves with cough, and was refusing to continue BIPAP.Patient's initial EKG showed prolonged QTc 477. EKG ordered to check QTc if not prolonged will order antiemetic Gastrointestinal: Yes: Nausea, Other (dry heaves) Physical Examination Vital Signs: Vital Signs Temperature 98.5 F 01/10/17 18:00 Pulse Rate 69 01/10/17 18:00 Respiratory Rate 20 01/10/17 18:00 Blood Pressure 140/95 01/10/17 18:00 O2 Sat by Pulse Oximetry (%) 94 L 01/10/17 21:00 Labs: CBC, BMP 01/09/17 21:20 01/09/17 21:20
[2017-01-11] MEDS ORDERED: METOCLOPRAMIDE HCL INJECTION 10 MG/2 ML VIAL IVPB ONE ×2 (02:21→18:04)
[2017-01-11] MEDS: SODIUM CHLORIDE 1,000 ML IV SCH (02:48)
[2017-01-11] MEDS ORDERED: METHADONE HCL 10 MG TABLET PO SCH (06:00)
[2017-01-11] MEDS: HEPARIN NA (PORCINE) 5,000 UNITS/ML 1ML VIAL SQ SCH ×3 (06:13→22:17)
[2017-01-11 07:41] LABS: BASOPHIL 0.1 % (0-2.0); MCH 33.1 pg (25.7-33.7); MEAN CELL VOLUME 100.4 fl (80-96); MEAN PLT VOLUME 9.3 fl (7.5-11.1); PLATELET COUNT 202 K/MM3 (134-434); RDW 13.5 % (11.6-15.6); WHITE BLOOD COUNT 10.9 K/mm3 (4.0-10.0)
--- NOTE | 2017-01-11 08:17 | PN ---
Progress Note, Physician Chief Complaint: altered MS History of Present Illness: awake this am, though sleepy denies cp, sob, palpitations, leg swelling - Current Medication List Current Medications: Active Medications Albuterol/Ipratropium (Duoneb -) 1 amp NEB Q4H PRN PRN Reason: SHORTNESS OF BREATH Last Admin: 01/10/17 06:45 Dose: 1 amp Heparin Sodium (Porcine) (Heparin -) 5,000 unit SQ TID [facility] Last Admin: 01/11/17 06:13 Dose: Not Given Sodium Chloride (Normal Saline -) 1,000 mls @ 100 mls/hr IV ASDIR [facility] Last Admin: 01/11/17 02:48 Dose: 100 mls/hr Ceftriaxone Sodium (Rocephin 1gm Ivpb (Pre-Docked)) 50 mls @ 100 mls/hr IVPB DAILY [facility] Last Admin: 01/10/17 09:19 Dose: 100 mls/hr Azithromycin 250 mg/ Dextrose 250 mls @ 250 mls/hr IVPB DAILY [facility] Methadone HCl (Dolophine -) 30 mg PO DAILY@0600 [facility] Last Admin: 01/11/17 06:11 Dose: 30 mg Pregabalin (Lyrica -) 50 mg PO BID [facility] Last Admin: 01/10/17 21:54 Dose: Not Given Ramipril (Altace -) 5 mg PO DAILY [facility] Last Admin: 01/10/17 10:18 Dose: 5 mg - Objective Vital Signs: Vital Signs Temperature 97.6 F 01/11/17 05:57 Pulse Rate 72 01/11/17 05:57 Respiratory Rate 20 01/11/17 05:57 Blood Pressure 158/97 01/11/17 05:57 O2 Sat by Pulse Oximetry (%) 94 L 01/10/17 21:00 Constitutional: Yes: Well Nourished, No Distress, Calm Cardiovascular: Yes: Regular Rate and Rhythm, S1, S2. No: Gallop, Murmur Respiratory: Yes: Regular, CTA Bilaterally. No: Accessory Muscle Use, Rales, Wheezes Extremities: No: Cold Edema: No Neurological: Yes: Alert. No: Seizure Psychiatric: No: Agitated Labs: CBC, BMP 01/11/17 05:42 01/09/17 21:20 - ....Imaging EKG: Other (tele: NSR) Assessment/Plan echo 09/2014: tds, nl lv/rv, no sig valve path, mild ao root dil cxr: clear lungs ecg 01/09/17: sr, nl intervals, no ischemic changes a/p: 51 f hx htn, dm, hld, cva, drug abuse, here with ams. ams: -possible seizure vs drug overdose -mgmt per hospitalist htn: -cont madalyn -bp mildly elevated overnight, however with acute dry heaves/cough -observe trend hld: -hold statin given current rhabdo h/o cva: -no acute findings on ct head here -per pmd/neuro drug abuse: -cessation discussed here -per hospitalist/psych abnl cardiac markers: -total ck is elevated (2300, trending up, today's pending) as well as ck mb but ckmb index is normal. trop x3 WNL -these lab values are not consistent with acs or myocardial injury; cpk likely skeletal muscle origin sec to sz (found foaming at the mouth per son) (-not on statin per ER home med list) -renal fxn normal D/C TELEMETRY
[2017-01-11] MEDS: PREGABALIN 50 MG CAPSULE PO SCH ×2 (09:25→22:17)
[2017-01-11] MEDS: RAMIPRIL 5 MG CAPSULE (FP) PO SCH (09:25)
[2017-01-11] MEDS: CEFTRIAXONE 50 ML IVPB SCH (09:26)
[2017-01-11] MEDS ORDERED: AZITHROMYCIN IVPB 250 MG in DEXTROSE 5%-WATER - 250 ML IVPB SCH (10:00)
[2017-01-11] MEDS ORDERED: ACETAMINOPHEN 325 MG TABLET (FP) PO ONE (10:52)
[2017-01-11] MEDS ORDERED: NALOXONE HCL 0.4 MG/ML VIAL ONE (14:13)
--- NOTE | 2017-01-11 14:42 | PN ---
Progress Note (short form) - Note Progress Note: Subjective: Went to evaluate the patient at 2:00pm. The patient was unresponsive to sternal rub, pupils pinpoint. Patient noted to be grunting. Vital signs were stable, O2 99% on RA. Narcan ordered, not given as the patient began to open her eyes spontaneously and began speaking. Her pupils are pinpoint and unresponsive to light. The patient appears agitated and fidgety, she also appears paranoid. She reports only taking Methadone today and denies any additional drug use. The RN states the patient was awake, alert, and oriented about 2 hours ago when her mom came to visit. Per prescription monitoring program: Patient filled Rx for Oxycodone 15mg #90 on 12/25/[address] stat ABG Current Medications Generic Name Dose Route Start Last Admin Trade Name Freq PRN Reason Stop Dose Admin Albuterol/Ipratropium 1 amp 01/10/17 06:38 01/10/17 06:45 Duoneb - NEB 1 amp Q4H PRN Administration SHORTNESS OF BREATH Heparin Sodium (Porcine) 5,000 unit 01/10/17 22:00 01/11/17 06:13 Heparin - SQ Not Given TID PATRICIA Ceftriaxone Sodium 50 mls @ 100 mls/hr 01/10/17 06:45 01/11/17 09:26 Rocephin 1gm Ivpb (Pre-Docked) IVPB 100 mls/hr DAILY PATRICIA Administration Azithromycin 250 mg/ Dextrose 250 mls @ 250 mls/hr 01/11/17 10:00 01/11/17 09: 25 IVPB 250 mls/hr DAILY PATRICIA Administration Methadone HCl 30 mg 01/11/17 06:00 01/11/17 06:11 Dolophine - PO 30 mg DAILY@0600 PATRICIA Administration Pregabalin 50 mg 01/09/17 22:00 01/11/17 09:25 Lyrica - PO Not Given BID PATRICIA Ramipril 5 mg 01/10/17 10:00 01/11/17 09:25 Altace - PO 5 mg DAILY PATRICIA Administration Objective: Vital Signs Period Temp Pulse Resp BP Sys/Hitchcock Pulse Ox Last 24 Hr 97.6 F-98.5 F 67-72 18-20 135-158/59-105 94-98 Physical Exam: General: NAD, A&Ox3 HEENT: Pupils pinpoint 2mm, equal, non-reactive to light Lungs: CTA bilaterally Heart: Tachycardia, S1S2 MSK: 5/5 muscle strength b/l upper and lower extremities Neuro: CN 2-12 intact CBCD WBC 10.9 K/mm3 (4.0-10.0) H 01/11/17 05:42 RBC 4.09 M/mm3 (3.60-5.2) 01/11/17 05:42 Hgb 13.5 GM/dL (10.7-15.3) 01/11/17 05:42 Hct 41.1 % (32.4-45.2) 01/11/17 05:42 MCV 100.4 fl (80-96) H 01/11/17 05:42 MCHC 33.0 g/dl (32.0-36.0) 01/11/17 05:42 RDW 13.5 % (11.6-15.6) 01/11/17 05:42 Plt Count 202 K/MM3 (134-434) D 01/11/17 05:42 MPV 9.3 fl (7.5-11.1) D 01/11/17 05:42 CMP Sodium 138 mmol/L (136-145) 01/09/17 21:20 Potassium 4.8 mmol/L (3.5-5.1) 01/09/17 21:20 Chloride 104 mmol/L (98-107) 01/09/17 21:20 Carbon Dioxide 25 mmol/L (22-28) 01/09/17 21:20 Anion Gap 9 (8-16) 01/09/17 21:20 BUN 15 mg/dl (7-18) 01/09/17 21:20 Creatinine 1.0 mg/dl (0.6-1.3) 01/09/17 21:20 Creat Clearance w eGFR 51.96 (>60) 01/09/17 09:10 Random Glucose 151 mg/dl (74-106) H D 01/09/17 21:20 Calcium 8.4 mg/dl (8.4-10.2) 01/09/17 21:20 Total Bilirubin 0.4 mg/dl (0.2-1.0) D 01/09/17 09:10 AST 38 U/L (10-42) D 01/09/17 09:10 ALT 24 U/L (10-40) D 01/09/17 09:10 Alkaline Phosphatase 75 U/L (32-92) 01/09/17 09:10 Total Protein 7.1 g/dl (6.4-8.3) 01/09/17 09:10 Albumin 4.0 g/dl (3.5-5.0) 01/09/17 09:10 CARDIAC ENZYMES Creatine Kinase 1009 IU/L (26-192) H D 01/11/17 05:42 Troponin I 0.34 ng/ml (0.03-0.50) 01/09/17 21:20 Microbiology 01/09/17 10:00 Blood - Peripheral Venous Blood Culture - Preliminary NO GROWTH OBTAINED AFTER 48 HOURS, INCUBATION TO CONTINUE FOR 3 DAYS. 01/09/17 10:00 Blood - Peripheral Venous Blood Culture - Preliminary NO GROWTH OBTAINED AFTER 48 HOURS, INCUBATION TO CONTINUE FOR 3 DAYS. Assessment: This is a 51 year old female with PMHx of HTN, chronic opioid abuse (heroin and oxycodone), CVA, nephrolithiasis, who presented to the ED with altered mental status requiring Narcan. Plan: 1) 3) Neuro: Acute metabolic encephalopathy - Patient found unresponsive in her room this afternoon. Patient was unarousable to sternal rub, narcan ordered, but the patient became responsive prior to administration - Utox - Stat head CT - ABG - Symptoms resolved, patient now A&Ox3 - Patient refusing ECHO, carotid dopplers - Appreciate neuro consult Hx of CVA - Head CT with no evidence of acute intracranial pathology - Old left frontoparietal cortical infarct and left boyer radiata lacunar infarct - Hold statin 2/2 rhabdo 2) MSK: Rhabdomyolysis - Continue IV fluids - CK level improving 3) Pulmonary: Acute respiratory failure 2/2 possible methadone overdose - Continue to monitor - F/u pulmonary consult 4) Cardiology: Boarderline elevated troponins - Patient denies any chest pain, unlikely acs per cards HTN - Continue Ramipril 5) Psych: Opioid dependence - Given methadone 30mg po today and was found to be unresponsive around 2pm. Will decrease dose to 20mg po daily - Call placed to Dr. Yaniv Good, awaiting call back - Continue to monitor 6) F/E/N: - Sodium controlled diet - Monitor electrolytes 7) Prophylaxis: - OOB ambulating - Heparin 5,000u sq tid 8) Dispo: - Requires continued inpatient care CODE STATUS: FULL CODE Visit type - Emergency Visit Emergency Visit: Yes ED Registration Date: 01/09/17 Care time: The patient presented to the Emergency Department on the above date and was hospitalized for further evaluation of their emergent condition. - New Patient This patient is new to me today: No - Critical Care Critical Care patient: Yes Total Critical Care Time (in minutes): 35 Critical Care Statement: The care of this patient involved high complexity decision making to prevent further life threatening deterioration of the patient 's condition and/or to evalute & treat vital organ system(s) failure or risk of failure.
[2017-01-11 14:48] LABS: ARTERIAL BLD GAS O2 SATURATION 99.9 % (90-98.9); ARTERIAL BLOOD GAS BASE EXCESS -0.6 meq/l (-2-2); ARTERIAL BLOOD GAS pH 7.28 (7.35-7.45)
[2017-01-11 14:49] LABS: ALLENS TEST POSITIVE; ART PUNCT SITE LEFT RADIAL; LPM/O2% 100%; PT. ON O2? YES; TYPE OF O2 NRB MASK
--- NOTE | 2017-01-11 15:29 | EKG ---
Test Reason : Blood Pressure : / mmHG Vent. Rate : 069 BPM Atrial Rate : 069 BPM P-R Int : 146 ms QRS Dur : 082 ms QT Int : 408 ms P-R-T Axes : 050 034 -17 degrees QTc Int : 437 ms NORMAL SINUS RHYTHM T WAVE ABNORMALITY, CONSIDER ANTERIOR ISCHEMIA ABNORMAL ECG WHEN COMPARED WITH ECG OF 09-JAN-2017 14:36, NO SIGNIFICANT CHANGE WAS FOUND CLINICAL CORRELATION IS RECOMMENDED Confirmed by SURINDER NAPOLES, RICK ([id number]) on 01/11/2017 3:29:16 PM Referred By: Confirmed By:RICK CADENA MD
[2017-01-11] MEDS ORDERED: ONDANSETRON 4 MG/2 ML VIAL ONE (18:00)
[2017-01-11] MEDS ORDERED: ONDANSETRON 4 MG/2 ML VIAL IVPB ONE (18:01)
[2017-01-12] MEDS: METHADONE HCL 10 MG TABLET PO SCH (06:21)
[2017-01-12] MEDS: HEPARIN NA (PORCINE) 5,000 UNITS/ML 1ML VIAL SQ SCH ×3 (06:22→21:54)
--- NOTE | 2017-01-12 08:35 | PN ---
Progress Note, Physician Chief Complaint: AMS History of Present Illness: denies cp, sob, palpit, leg swelling - Current Medication List Current Medications: Active Medications Albuterol/Ipratropium (Duoneb -) 1 amp NEB Q4H PRN PRN Reason: SHORTNESS OF BREATH Last Admin: 01/10/17 06:45 Dose: 1 amp Heparin Sodium (Porcine) (Heparin -) 5,000 unit SQ TID [facility] Last Admin: 01/12/17 06:22 Dose: Not Given Ceftriaxone Sodium (Rocephin 1gm Ivpb (Pre-Docked)) 50 mls @ 100 mls/hr IVPB DAILY [facility] Last Admin: 01/11/17 09:26 Dose: 100 mls/hr Azithromycin 250 mg/ Dextrose 250 mls @ 250 mls/hr IVPB DAILY [facility] Last Admin: 01/11/17 09:25 Dose: 250 mls/hr Methadone HCl (Dolophine -) 20 mg PO DAILY@0600 [facility] Last Admin: 01/12/17 06:21 Dose: 20 mg Pregabalin (Lyrica -) 50 mg PO BID [facility] Last Admin: 01/11/17 22:17 Dose: Not Given Ramipril (Altace -) 5 mg PO DAILY [facility] Last Admin: 01/11/17 09:25 Dose: 5 mg - Objective Vital Signs: Vital Signs Temperature 97.8 F 01/12/17 06:00 Pulse Rate 70 01/12/17 06:00 Respiratory Rate 18 01/12/17 06:00 Blood Pressure 170/99 01/12/17 06:00 O2 Sat by Pulse Oximetry (%) 96 01/11/17 21:00 Constitutional: Yes: No Distress, Calm, Obese Cardiovascular: Yes: Regular Rate and Rhythm, S1, S2. No: Gallop, Murmur Respiratory: Yes: Regular, CTA Bilaterally. No: Accessory Muscle Use, Rales, Wheezes Extremities: No: Cold Edema: No Neurological: Yes: Alert. No: Seizure Psychiatric: No: Agitated Labs: CBC, BMP 01/11/17 05:42 01/09/17 21:20 - ....Imaging EKG: Other (tele: NSR with sinus arrhythmia ECG 01/11: NSR; normal axis and intervals (incl QT). NSTWAs anterior and inferior, more prominent in V3/V4 vs prior) Assessment/Plan echo 09/2014: tds, nl lv/rv, no sig valve path, mild ao root dil cxr: clear lungs a/p: 51 f hx htn, dm, hld, cva, drug abuse, here with ams. ams: -possible seizure vs drug overdose -mgmt per hospitalist abnormal ECG: -nonspecific TWIs inferior and anterior, worse on 01/11 vs DOA (normal QT) -? methadone effect -check K/Mag -check echo -rpt ECG and troponins today -cont tele -in absence of suspected or possible angina sx's, will defer stress testing htn: -cont madalyn -01/12: bp remains suboptimal--add admlodipine 5mg hld: -hold statin given current rhabdo h/o cva: -no acute findings on ct head here -per pmd/neuro drug abuse: -cessation discussed here -per hospitalist/psych abnl cardiac markers: -total ck is elevated (2300, trending up, today's pending) as well as ck mb but ckmb index is normal. trop x3 WNL -these lab values are not consistent with acs or myocardial injury; cpk likely skeletal muscle origin sec to sz (found foaming at the mouth per son) (-not on statin per ER home med list) -renal fxn normal, ck trending down
--- NOTE | 2017-01-12 10:00 | PN ---
Progress Note (short form) - Note Progress Note: Subjective: Patient seen and examined at the bedside, the patient reports feeling better today, she slept with Bipap overnight Patient refusing IV abx, switched to oral Current Medications Generic Name Dose Route Start Last Admin Trade Name Johnathon PRN Reason Stop Dose Admin Albuterol/Ipratropium 1 amp 01/10/17 06:38 01/10/17 06:45 Duoneb - NEB 1 amp Q4H PRN Administration SHORTNESS OF BREATH Amlodipine Besylate 5 mg 01/12/17 10:00 Norvasc - PO DAILY [facility] Heparin Sodium (Porcine) 5,000 unit 01/10/17 22:00 01/12/17 06:22 Heparin - SQ Not Given TID [facility] Ceftriaxone Sodium 50 mls @ 100 mls/hr 01/10/17 06:45 01/11/17 09:26 Rocephin 1gm Ivpb (Pre-Docked) IVPB 100 mls/hr DAILY [facility] Administration Azithromycin 250 mg/ Dextrose 250 mls @ 250 mls/hr 01/11/17 10:00 01/11/17 09: 25 IVPB 250 mls/hr DAILY [facility] Administration Methadone HCl 20 mg 01/11/17 17:18 01/12/17 06:21 Dolophine - PO 20 mg DAILY@0600 [facility] Administration Pregabalin 50 mg 01/09/17 22:00 01/11/17 22:17 Lyrica - PO Not Given BID [facility] Ramipril 5 mg 01/10/17 10:00 01/11/17 09:25 Altace - PO 5 mg DAILY [facility] Administration Objective: Vital Signs Period Temp Pulse Resp BP Sys/Hitchcock Pulse Ox Last 24 Hr 97.8 F-98.9 F 70-84 18-20 147-170/66-99 95-100 Physical Exam: General: NAD, A&Ox3 HEENT: Pupils, equal, reactive to light Lungs: CTA bilaterally Heart: Tachycardia, S1S2 MSK: 5/5 muscle strength b/l upper and lower extremities Neuro: CN 2-12 intact CBCD WBC 10.9 K/mm3 (4.0-10.0) H 01/11/17 05:42 RBC 4.09 M/mm3 (3.60-5.2) 01/11/17 05:42 Hgb 13.5 GM/dL (10.7-15.3) 01/11/17 05:42 Hct 41.1 % (32.4-45.2) 01/11/17 05:42 MCV 100.4 fl (80-96) H 01/11/17 05:42 MCHC 33.0 g/dl (32.0-36.0) 01/11/17 05:42 RDW 13.5 % (11.6-15.6) 01/11/17 05:42 Plt Count 202 K/MM3 (134-434) D 01/11/17 05:42 MPV 9.3 fl (7.5-11.1) D 01/11/17 05:42 CMP Sodium 138 mmol/L (136-145) 01/09/17 21:20 Potassium 4.8 mmol/L (3.5-5.1) 01/09/17 21:20 Chloride 104 mmol/L (98-107) 01/09/17 21:20 Carbon Dioxide 25 mmol/L (22-28) 01/09/17 21:20 Anion Gap 9 (8-16) 01/09/17 21:20 BUN 15 mg/dl (7-18) 01/09/17 21:20 Creatinine 1.0 mg/dl (0.6-1.3) 01/09/17 21:20 Creat Clearance w eGFR 51.96 (>60) 01/09/17 09:10 Random Glucose 151 mg/dl (74-106) H D 01/09/17 21:20 Calcium 8.4 mg/dl (8.4-10.2) 01/09/17 21:20 Total Bilirubin 0.4 mg/dl (0.2-1.0) D 01/09/17 09:10 AST 38 U/L (10-42) D 01/09/17 09:10 ALT 24 U/L (10-40) D 01/09/17 09:10 Alkaline Phosphatase 75 U/L (32-92) 01/09/17 09:10 Total Protein 7.1 g/dl (6.4-8.3) 01/09/17 09:10 Albumin 4.0 g/dl (3.5-5.0) 01/09/17 09:10 CARDIAC ENZYMES Creatine Kinase 401 IU/L (26-192) H D 01/12/17 05:42 Troponin I 0.34 ng/ml (0.03-0.50) 01/09/17 21:20 Microbiology 01/09/17 10:00 Blood - Peripheral Venous Blood Culture - Preliminary NO GROWTH OBTAINED AFTER 48 HOURS, INCUBATION TO CONTINUE FOR 3 DAYS. 01/09/17 10:00 Blood - Peripheral Venous Blood Culture - Preliminary NO GROWTH OBTAINED AFTER 48 HOURS, INCUBATION TO CONTINUE FOR 3 DAYS. Assessment: This is a 51 year old female with PMHx of HTN, chronic opioid abuse (heroin and oxycodone), CVA, nephrolithiasis, who presented to the ED with altered mental status requiring Narcan. Plan: 1) Neuro: Acute metabolic encephalopathy - Resolved - Episode of unresponsiveness yesterday, possibly 2/2 increased methadone dose vs. patient taking opiates from home. Decreased dose of methadone to 20mg today , monitor response closely - Utox - Repeat head CT yesterday unchanged - Patient refusing ECHO, carotid dopplers - Appreciate neuro consult Hx of CVA - Head CT with no evidence of acute intracranial pathology - Old left frontoparietal cortical infarct and left boyer radiata lacunar infarct - Start statin once rhabdo resolved 2) MSK: Rhabdomyolysis - Resolving - Discontinue IV fluids 3) Pulmonary: Acute respiratory failure 2/2 possible methadone overdose - Continue to monitor - F/u pulmonary consult 4) Cardiology: Boarderline elevated troponins - Patient denies any chest pain, unlikely acs per cards HTN - Continue Ramipril 5) Psych: Opioid dependence - Decreased dose to 20mg po daily today - Call placed x2 to Dr. Yaniv Good, awaiting call back - Continue to monitor 6) F/E/N: - Sodium controlled diet - Monitor electrolytes 7) Prophylaxis: - OOB ambulating - Heparin 5,000u sq tid 8) Dispo: - Requires continued inpatient care - Awaiting reevaluation from Dr. Yaniv Good for Methadone dosing as outpatient CODE STATUS: FULL CODE Visit type - Emergency Visit Emergency Visit: Yes ED Registration Date: 01/09/17 Care time: The patient presented to the Emergency Department on the above date and was hospitalized for further evaluation of their emergent condition. - New Patient This patient is new to me today: No - Critical Care Critical Care patient: No
[2017-01-12] MEDS: RAMIPRIL 5 MG CAPSULE (FP) PO SCH (10:38)
[2017-01-12] MEDS: CEFTRIAXONE 50 ML IVPB SCH (10:38)
[2017-01-12] MEDS: amLODIPine BESYLATE 5 MG TABLET (FP) PO SCH (10:38)
[2017-01-12 10:49] LABS: CALCIUM 8.5 mg/dL (8.5-10.1); COCKROFT - GAULT 136.4335; CREATININE 0.7 mg/dL (0.55-1.02); MAGNESIUM 2.2 mg/dL (1.8-2.4)
[2017-01-12] MEDS: PREGABALIN 50 MG CAPSULE PO SCH ×2 (10:50→21:53)
[2017-01-12 11:07] LABS: CALCIUM 8.4 mg/dL (8.5-10.1); COCKROFT - GAULT 136.4335; CREATININE 0.7 mg/dL (0.55-1.02); MAGNESIUM 2.2 mg/dL (1.8-2.4)
[2017-01-12 11:09] LABS: TROPONIN I 0.06 ng/ml (0.00-0.05)
[2017-01-12] MEDS: AZITHROMYCIN 250 MG TABLET (FP) PO SCH (13:50)
--- NOTE | 2017-01-12 13:50 | CON.PULM ---
Consult Consult Specialty:: PULMONARY Referred by:: DANITZA Shell Reason for Consultation:: respiratory failure - History of Present Illness Chief Complaint: altered mental status History of Present Illness: 51yo female with h/o HTN, DM, hyperlipidemia, opiate dependence who was admitted with altered mental status. Given narcan with improvement. Has been on methadone for the past 3 weeks to try to maintain her opiate dependence. She had been taking 300mg oxycontin daily prior to the methadone. She denies any shortness of breath but admits to being somnolent during the day. No chest pain. No cough or wheezing. She is a long time smoker, started at 11, smokes 1 PPD. Has been told that she has COPD. - History Source History Provided By: Patient, Medical Record Limitations to Obtaining History: Clinical Condition - Past Medical History Cardio/Vascular: Yes: HTN, Hyperlipdemia Pulmonary: Yes: COPD Gastrointestinal: Yes: Other (dyspepsia) Renal/: Yes: UTI Psych: Yes: Other (unspec affective dz) - Past Surgical History Past Surgical History: Yes: Appendectomy, - Alcohol/Substance Use Hx Alcohol Use: Yes (DAILY) History of Substance Use: reports: Marijuana (substance abuse reported.) - Smoking History Smoking history: Current every day smoker Have you smoked in the past 12 months: Yes Aproximately how many cigarettes per day: 20 - Social History ADL: Independent 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 History of Recent Travel: No Home Medications - Allergies Allergies/Adverse Reactions: Allergies Allergy/AdvReac Type Severity Reaction Status Date / Time morphine Allergy Mild Itching Verified 09/09/16 01:02 - Home Medications Home Medications: Ambulatory Orders Trazodone HCl [Desyrel -] 200 mg PO HS #7 tablet 03/08/14 Ramipril [Altace] 5 mg PO DAILY #0 capsule 09/14/14 Amlodipine Besylate [Norvasc -] 10 mg PO DAILY #30 tablet 05/14/15 Metoprolol Succinate [Toprol XL -] 100 mg PO DAILY 07/10/15 Oxycodone HCl [Roxicodone -] 15 mg PO BID 06/22/16 Pregabalin [Lyrica -] 50 mg PO BID 06/22/16 Methadone [Dolophine -] 50 mg PO DAILY 01/09/17 Family Disease History - Family Disease History Family Disease History: Other: Father (GB disease) Review of Systems - Review of Systems Constitutional: reports: Weakness. denies: Chills, Fever Eyes: denies: Recent Change in Vision HENT: denies: Nasal Congestion, Throat Pain Neck: denies: Stiffness, Tenderness Cardiovascular: denies: Chest Pain, Palpitations, Shortness of Breath Respiratory: denies: Cough, Hemoptysis, Wheezing Gastrointestinal: denies: Abdominal Pain, Nausea, Vomiting Genitourinary: denies: Dysuria, Hematuria Neurological: denies: Dizziness, Headache Physical Exam Vital Sings: Vital Signs Temperature 98 F 01/12/17 10:36 Pulse Rate 77 01/12/17 10:36 Respiratory Rate 20 01/12/17 10:36 Blood Pressure 180/100 01/12/17 10:36 O2 Sat by Pulse Oximetry (%) 95 01/12/17 11:49 Constitutional: Yes: Calm Eyes: Yes: Conjunctiva Clear, EOM Intact HENT: Yes: Atraumatic, Normocephalic Neck: Yes: Supple, Trachea Midline Cardiovascular: Yes: Regular Rate and Rhythm Respiratory: Yes: Diminished (distant breath sounds) ...Clubbing: No Gastrointestinal: Yes: Normal Bowel Sounds, Soft. No: Tenderness Edema: No Neurological: Yes: Alert, Oriented Labs: CBC, BMP 01/11/17 05:42 01/12/17 10:20 ABG Results ABG pH 7.28 (7.35-7.45) L 01/11/17 14:35 ABG pCO2 at Pt Temp 59.4 mmHg (35-45) H 01/11/17 14:35 ABG pO2 at Pt Temp 194.0 mmHg (80-100) H* 01/11/17 14:35 ABG HCO3 27.0 meq/L (22-26) H 01/11/17 14:35 ABG O2 Sat (Measured) 99.9 % (90-98.9) H* 01/11/17 14:35 ABG O2 Content 19.5 % vol (15-22) 01/11/17 14:35 ABG Base Excess -0.6 meq/l (-2-2) 01/11/17 14:35 Imaging - Results Chest X-ray: Report Reviewed, Image Reviewed (no infiltrates) Problem List - Problems (1) Acute on chronic respiratory failure with hypercapnia Code(s): Carlton96.22 - ACUTE AND CHRONIC RESPIRATORY FAILURE WITH HYPERCAPNIA (2) Altered mental status Code(s): R41.82 - ALTERED MENTAL STATUS, UNSPECIFIED (3) Opiate dependence Code(s): F11.20 - OPIOID DEPENDENCE, UNCOMPLICATED (4) Hypertension Code(s): I10 - ESSENTIAL (PRIMARY) HYPERTENSION (5) COPD (chronic obstructive pulmonary disease) Code(s): J44.9 - CHRONIC OBSTRUCTIVE PULMONARY DISEASE, UNSPECIFIED (6) Rhabdomyolysis Code(s): M62.82 - RHABDOMYOLYSIS Assessment/Plan Altered Mental Status Acute on Chronic Hypercapneic Respiratory Failure Opiate Dependence COPD Rhabdomyolysis - chronic hypercapnea likely due to her opiate/methadone dependence - BiPAP while sleeping and PRN during day - will need to check ABG on room air within 48hrs of discharge to see if she will qualify for home PAP device - inhaled bronchodilators - attempt to taper down opiates - smoking cessation - outpt PFTs - DVT prophylaxis Thank you for this consult Rommel Stephen MD
[2017-01-12] MEDS: CEFUROXIME AXETIL 500 MG TABLET PO SCH ×2 (13:51→21:52)
[2017-01-12 13:57] LABS: URINE MARIJUANA THC POSITIVE ng/ml (CUTOFF=50)
--- NOTE | 2017-01-12 15:23 | EKG ---
Test Reason : Blood Pressure : / mmHG Vent. Rate : 071 BPM Atrial Rate : 071 BPM P-R Int : 152 ms QRS Dur : 084 ms QT Int : 426 ms P-R-T Axes : 047 036 -04 degrees QTc Int : 462 ms NORMAL SINUS RHYTHM NONSPECIFIC T WAVE ABNORMALITY NORMAL ECG WHEN COMPARED WITH ECG OF 11-JAN-2017 14:40, NO SIGNIFICANT CHANGE WAS FOUND Confirmed by SURINDER NAPOLES, RICK ([id number]) on 01/12/2017 3:23:05 PM Referred By: Angélica FLORES Confirmed By:RICK CADENA MD
--- NOTE | 2017-01-12 15:38 | EKG ---
Test Reason : Blood Pressure : / mmHG Vent. Rate : 100 BPM Atrial Rate : 100 BPM P-R Int : 162 ms QRS Dur : 080 ms QT Int : 372 ms P-R-T Axes : 046 033 000 degrees QTc Int : 479 ms NORMAL SINUS RHYTHM NORMAL ECG WHEN COMPARED WITH ECG OF 11-JAN-2017 02:13, T WAVE INVERSION NO LONGER EVIDENT IN ANTERIOR LEADS CLINICAL CORRELATION IS RECOMMENDED Confirmed by SURINDER NAPOLES, RICK ([id number]) on 01/12/2017 3:38:11 PM Referred By: Angélica FLORES Confirmed By:RICK CADENA MD
[2017-01-12] MEDS ORDERED: PT OWN MED DRAWER 7, Y5N ONE (21:27)
[2017-01-13] MEDS: METHADONE HCL 10 MG TABLET PO SCH (06:59)
[2017-01-13] MEDS: HEPARIN NA (PORCINE) 5,000 UNITS/ML 1ML VIAL SQ SCH ×3 (07:01→21:34)
[2017-01-13] MEDS: amLODIPine BESYLATE 5 MG TABLET (FP) PO SCH (07:02)
[2017-01-13] MEDS ORDERED: amLODIPine BESYLATE 5 MG TABLET (FP) PO ONE (08:32)
[2017-01-13] MEDS: RAMIPRIL 5 MG CAPSULE (FP) PO SCH ×2 (08:49→09:20)
[2017-01-13] MEDS: AZITHROMYCIN 250 MG TABLET (FP) PO SCH (09:20)
[2017-01-13] MEDS ORDERED: PT OWN MED DRAWER 7, Y5N ONE ×2 (09:20→21:30)
[2017-01-13] MEDS: CEFUROXIME AXETIL 500 MG TABLET PO SCH ×2 (09:23→21:34)
[2017-01-13] MEDS: PREGABALIN 50 MG CAPSULE PO SCH ×2 (09:24→21:35)
[2017-01-13 09:40] LABS: BASOPHIL 0.6 % (0-2.0); EOSINOPHIL 0.4 % (0-4.5); MCHC 34.3 g/dl (32.0-36.0); MEAN CELL VOLUME 96.2 fl (80-96); MEAN PLT VOLUME 8.3 fl (7.5-11.1); NEUTROPHILS 74.6 % (42.8-82.8); PLATELET COUNT 215 K/MM3 (134-434); RDW 12.8 % (11.6-15.6)
--- NOTE | 2017-01-13 10:10 | PN ---
Progress Note (short form) - Note Progress Note: Chief Complaint: AMS History of Present Illness: denies cp, sob, palpit, leg swelling. requesting nicotine patch. Current Medications Albuterol/Ipratropium (Duoneb -) 1 amp NEB Q4H PRN PRN Reason: SHORTNESS OF BREATH Last Admin: 01/10/17 06:45 Dose: 1 amp Amlodipine Besylate (Norvasc -) 10 mg PO DAILY [facility] Azithromycin (Zithromax -) 250 mg PO DAILY [facility] Last Admin: 01/13/17 09:20 Dose: 250 mg Cefuroxime Axetil (Ceftin -) 500 mg PO BID [facility] Last Admin: 01/13/17 09:23 Dose: 500 mg Heparin Sodium (Porcine) (Heparin -) 5,000 unit SQ TID [facility] Last Admin: 01/13/17 07:01 Dose: Not Given Methadone HCl (Dolophine -) 20 mg PO DAILY@0600 [facility] Last Admin: 01/13/17 06:59 Dose: 20 mg Nicotine (Nicoderm Patch -) 21 mg TD DAILY [facility] Last Admin: 01/13/17 11:18 Dose: 21 mg Pregabalin (Lyrica -) 50 mg PO BID [facility] Last Admin: 01/13/17 09:24 Dose: Not Given Ramipril (Altace -) 5 mg PO DAILY [facility] Last Admin: 01/13/17 09:20 Dose: Not Given Vital Signs - 24 hr 01/12/17 01/12/17 01/12/17 14:54 17:00 21:00 Temperature 98.9 F 98.2 F Pulse Rate 85 78 Respiratory 20 20 Rate Blood Pressure 163/83 136/81 O2 Sat by Pulse 100 Oximetry (%) 01/12/17 01/13/17 01/13/17 22:00 02:16 06:00 Temperature 98.3 F 98.6 F Pulse Rate 77 69 70 Respiratory 20 20 20 Rate Blood Pressure 163/96 156/107 186/101 O2 Sat by Pulse Oximetry (%) 01/13/17 01/13/17 01/13/17 08:35 09:00 11:30 Temperature 98.2 F Pulse Rate 72 74 Respiratory 16 16 Rate Blood Pressure 186/116 186/108 O2 Sat by Pulse 96 Oximetry (%) Intake & Output 01/11/17 01/12/17 01/13/1717 07:59 07:59 07:59 07:59 Intake Total 1770 1500 550 Balance 1770 1500 550 - Objective Vital Signs: Constitutional: Yes: No Distress, Calm, Obese Cardiovascular: Yes: Regular Rate and Rhythm, S1, S2. No: Gallop, Murmur Respiratory: Yes: Regular, CTA Bilaterally. No: Accessory Muscle Use, Rales, Wheezes Extremities: No: Cold Edema: No Neurological: Yes: Alert. No: Seizure Psychiatric: No: Agitated Labs: CBC, BMP 01/13/17 09:33 01/13/17 09:33 Laboratory Tests 01/12/17 01/13/17 01/13/17 10:20 09:33 09:33 Total Bilirubin 0.6 D AST 28 ALT 38 D Alkaline Phosphatase 75 D Creatine Kinase 352 H 170 D CK-MB (CK-2) 2.104 < 1.000 Troponin I 0.06 H - ....Imaging EKG: Other (tele: NSR ECG 01/11: NSR; normal axis and intervals (incl QT). NSTWAs anterior and inferior , more prominent in V3/V4 vs prior) Assessment/Plan echo 09/2014: tds, nl lv/rv, no sig valve path, mild ao root dil cxr: clear lungs a/p: 51 f hx htn, dm, hld, cva, drug abuse, here with ams. ams: -possible seizure vs drug overdose/hypercapnea -mgmt per hospitalist/pulm abnormal ECG: -nonspecific TWIs inferior and anterior, worse on 01/11 vs DOA (normal QT) -? methadone effect -ongoing electrolyte repletion prn K/Mag -check echo (pt. refused) -repeat CE's negative. - no events on tele, qt shortened on progressive ekg's. -in absence of suspected or possible angina sx's, will defer stress testing htn: -cont madalyn -01/12-01/13: bp remains suboptimal--added amlodipine 5mg 01/12. uptitrated 01/13. con't to monitor. hld: -hold statin given current rhabdo h/o cva: -no acute findings on ct head here -per pmd/neuro drug abuse: -cessation discussed here -per hospitalist/psych + tobacco - smoking cessation counseling. added nicotine patch. abnl cardiac markers: -total ck is elevated (2300, trending up, today's pending) as well as ck mb but ckmb index is normal. trop x3 WNL -these lab values are not consistent with acs or myocardial injury; cpk likely skeletal muscle origin sec to sz (found foaming at the mouth per son) (-not on statin per ER home med list) -renal fxn normal, ck trending down OK to d/c telemetry.
[2017-01-13 10:12] LABS: ALBUMIN 3.6 g/dl (3.4-5.0); ANION GAP 8 (8-16); CALCIUM 9.3 mg/dL (8.5-10.1); CO2 39 mmol/L (21-32); CREATININE 0.6 mg/dL (0.55-1.02); GLUCOSE,RANDOM 102 mg/dL (74-106); SGOT/AST 28 U/L (15-37); SGPT/ALT 38 U/L (12-78)
[2017-01-13 10:14] LABS: ALK PHOS 75 U/L (45-117); BILIRUBIN,TOTAL 0.6 mg/dL (0.2-1.0); TOT PROT 6.6 g/dl (6.4-8.2)
[2017-01-13] MEDS: NICOTINE 21 MG/24 HOURS TOPICAL PATCH TD SCH (11:18)
--- NOTE | 2017-01-13 11:29 | PN ---
Physical Exam: SUBJECTIVE: Patient seen and examined. Offers no complaints, denies shortness of breath. Refused bipap "I do not need it" OBJECTIVE: Awake and alert, answering questions appropriately On 2 liters of nasal cannula, will order pre and post and monitor Refused bipap overnight, Appears comfortable at rest Hypertenive this morning, increased Amlodipine to 10mg daily Vital Signs Period Temp Pulse Resp BP Sys/Hitchcock Pulse Ox Last 24 Hr 98.2 F-98.9 F 69-85 16-20 136-186/81-116 95-100 GENERAL: The patient is awake, alert, and fully oriented, in no acute distress. HEAD: Normal with no signs of trauma. EYES: PERRL, extraocular movements intact, sclera anicteric, conjunctiva clear. No ptosis. ENT: Ears normal, nares patent, oropharynx clear without exudates, moist mucous membranes. NECK: Trachea midline, full range of motion, supple. LUNGS: Breath sounds equal, clear to auscultation bilaterally, no wheezes, no crackles, no accessory muscle use. HEART: Regular rate and rhythm, S1, S2 without murmur, rub or gallop. ABDOMEN: Soft, nontender, nondistended, normoactive bowel sounds, no guarding, no rebound, no hepatosplenomegaly, no masses. EXTREMITIES: no edema. NEUROLOGICAL: Normal speech, gait not observed. PSYCH: Normal mood, normal affect. SKIN: Warm, dry, normal turgor, no rashes or lesions noted Laboratory Results - last 24 hr 01/12/17 01/12/17 01/13/17 10:20 13:00 09:33 WBC 12.0 H RBC 4.35 Hgb 14.3 Hct 41.9 MCV 96.2 H MCHC 34.3 RDW 12.8 Plt Count 215 MPV 8.3 D Neutrophils % 74.6 Lymphocytes % 17.2 Monocytes % 7.2 Eosinophils % 0.4 D Basophils % 0.6 D Sodium Potassium Chloride Carbon Dioxide Anion Gap BUN Creatinine Creat Clearance w eGFR Random Glucose Calcium Total Bilirubin AST ALT Alkaline Phosphatase Creatine Kinase CK-MB (CK-2) 2.104 Total Protein Albumin Opiates Screen Negative Methadone Screen Positive Barbiturate Screen Negative Phencyclidine Screen Negative Ur Amphetamines Screen Negative MDMA (Ecstasy) Screen Negative Benzodiazepines Screen Negative Cocaine Screen Negative U Marijuana (THC) Screen Positive 01/13/17 01/13/17 09:33 09:33 WBC RBC Hgb Hct MCV MCHC RDW Plt Count MPV Neutrophils % Lymphocytes % Monocytes % Eosinophils % Basophils % Sodium 138 Potassium 3.2 L D Chloride 91 L Carbon Dioxide 39 H Anion Gap 8 BUN 5 L D Creatinine 0.6 Creat Clearance w eGFR > 60 Random Glucose 102 Calcium 9.3 Total Bilirubin 0.6 D AST 28 ALT 38 D Alkaline Phosphatase 75 D Creatine Kinase 170 D CK-MB (CK-2) < 1.000 Total Protein 6.6 Albumin 3.6 D Opiates Screen Methadone Screen Barbiturate Screen Phencyclidine Screen Ur Amphetamines Screen MDMA (Ecstasy) Screen Benzodiazepines Screen Cocaine Screen U Marijuana (THC) Screen Active Medications Generic Name Dose Route Start Last Admin Trade Name Freq PRN Reason Stop Dose Admin Albuterol/Ipratropium 1 amp 01/10/17 06:38 01/10/17 06:45 Duoneb - NEB 1 amp Q4H PRN Administration SHORTNESS OF BREATH Amlodipine Besylate 10 mg 01/14/17 10:00 Norvasc - PO DAILY [facility] Azithromycin 250 mg 01/12/17 13:00 01/13/17 09:20 Zithromax - PO 250 mg DAILY [facility] Administration Cefuroxime Axetil 500 mg 01/12/17 13:00 01/13/17 09:23 Ceftin - PO 500 mg BID [facility] Administration Heparin Sodium (Porcine) 5,000 unit 01/10/17 22:00 01/13/17 07:01 Heparin - SQ Not Given TID [facility] Methadone HCl 20 mg 01/11/17 17:18 01/13/17 06:59 Dolophine - PO 20 mg DAILY@0600 [facility] Administration Nicotine 21 mg 01/13/17 11:15 01/13/17 11:18 Nicoderm Patch - TD 21 mg DAILY [facility] Administration Potassium Chloride 40 meq 01/13/17 11:30 Potassium Chloride Oral Liquid PO 01/13/17 11:31 ONCE ONE Pregabalin 50 mg 01/09/17 22:00 01/13/17 09:24 Lyrica - PO Not Given BID [facility] Ramipril 5 mg 01/10/17 10:00 01/13/17 09:20 Altace - PO Not Given DAILY [facility] ASSESSMENT/PLAN: Patient is a 51 year old female with a significant past medical history of polysubstance abuse and CVA who presentedto the ER on 01/09/2017 with AMS requiring Narcan for suspected opioid overdose. Neurology: Acute metabolic encephalopathy - resolved Assessment/Plan: alert and oriented x 3, no neuro deficits noted on exam On Methadone 20mg daily which was decreased yesterday Will continue on this dose and monitor Dr. Yaniv Good following Neuro following CVA - chronic/history of Assessment/Plan: Head CT negative for any acute pathology Monitor mental status Muscular/Skeletal: Rhabdomyolysis - improving Assessment/Plan: continue to trend Pulmonary: Acute Respiratory Failure - likely opioid induced Assessment/Plan: ABG in a.m. to assess need for home bipap Respiratory pre and post Pulmonary following Cardiology Hypertension - acute Assessment/Plan: BP elevated Titrated Norvasc to 10mg Cardiology following Cardiology notes reviewed F.E.N. Fluids: tolerating PO Electrolytes: monitor/hypoK repleted Nutrition: low sodium Prophylaxis: DVT: Heparin 5,000u sq tid Disposition: Full Code. Will need Methadone as an outpatient, Dr. Yaniv Good following Visit type - Emergency Visit Emergency Visit: Yes ED Registration Date: 01/09/17 Care time: The patient presented to the Emergency Department on the above date and was hospitalized for further evaluation of their emergent condition. - New Patient This patient is new to me today: Yes Date on this admission: 01/14/17 - Critical Care Critical Care patient: No - Discharge Referral Referred to [facility] Med P.C.: No
[2017-01-13] MEDS ORDERED: POTASSIUM CHLORIDE ORAL LIQUID 20 MEQ/15 ML PO ONE (11:30)
[2017-01-13] MEDS ORDERED: POTASSIUM CHLORIDE TABS 20 MEQ TABLET.ER (FP) PO ONE (13:00)
--- NOTE | 2017-01-13 13:16 | PN ---
Progress Note, Physician History of Present Illness: PULMONARY ALERT,NAD,-SOB,-CP,-COUGH - Current Medication List Current Medications: Active Medications Albuterol/Ipratropium (Duoneb -) 1 amp NEB Q4H PRN PRN Reason: SHORTNESS OF BREATH Last Admin: 01/10/17 06:45 Dose: 1 amp Amlodipine Besylate (Norvasc -) 10 mg PO DAILY [facility] Azithromycin (Zithromax -) 250 mg PO DAILY [facility] Last Admin: 01/13/17 09:20 Dose: 250 mg Cefuroxime Axetil (Ceftin -) 500 mg PO BID [facility] Last Admin: 01/13/17 09:23 Dose: 500 mg Heparin Sodium (Porcine) (Heparin -) 5,000 unit SQ TID [facility] Last Admin: 01/13/17 13:06 Dose: 5,000 unit Methadone HCl (Dolophine -) 20 mg PO DAILY@0600 [facility] Last Admin: 01/13/17 06:59 Dose: 20 mg Nicotine (Nicoderm Patch -) 21 mg TD DAILY [facility] Last Admin: 01/13/17 11:18 Dose: 21 mg Pregabalin (Lyrica -) 50 mg PO BID [facility] Last Admin: 01/13/17 09:24 Dose: Not Given Ramipril (Altace -) 5 mg PO DAILY [facility] Last Admin: 01/13/17 09:20 Dose: Not Given - Objective Vital Signs: Vital Signs Temperature 98.2 F 01/13/17 08:35 Pulse Rate 74 01/13/17 11:30 Respiratory Rate 16 01/13/17 11:30 Blood Pressure 186/108 01/13/17 11:30 O2 Sat by Pulse Oximetry (%) 96 01/13/17 09:00 Constitutional: Yes: Well Nourished, Calm Eyes: Yes: WNL HENT: Yes: WNL Neck: Yes: WNL Cardiovascular: Yes: Regular Rate and Rhythm, S1, S2 Respiratory: Yes: Diminished Gastrointestinal: Yes: Normal Bowel Sounds, Soft Extremities: Yes: WNL Edema: No Labs: CBC, BMP 01/13/17 09:33 01/13/17 09:33 Assessment/Plan Problem List - Problems (1) Acute on chronic respiratory failure with hypercapnia Code(s): J96.22 - ACUTE AND CHRONIC RESPIRATORY FAILURE WITH HYPERCAPNIA (2) Altered mental status Code(s): R41.82 - ALTERED MENTAL STATUS, UNSPECIFIED (3) Opiate dependence Code(s): F11.20 - OPIOID DEPENDENCE, UNCOMPLICATED (4) Hypertension Code(s): I10 - ESSENTIAL (PRIMARY) HYPERTENSION (5) COPD (chronic obstructive pulmonary disease) Code(s): J44.9 - CHRONIC OBSTRUCTIVE PULMONARY DISEASE, UNSPECIFIED (6) Rhabdomyolysis Code(s): M62.82 - RHABDOMYOLYSIS Assessment/Plan Altered Mental Status Acute on Chronic Hypercapneic Respiratory Failure Opiate Dependence COPD Rhabdomyolysis - chronic hypercapnea likely due to her opiate/methadone dependence - BiPAP while sleeping and PRN during day - check ABG on room air within 48hrs of discharge to see if she will qualify for home PAP device - inhaled bronchodilators - attempt to taper down opiates - smoking cessation - outpt PFTs - DVT prophylaxis DR NG
[2017-01-13] MEDS ORDERED: RAMIPRIL 5 MG CAPSULE (FP) PO ONE (21:09)
[2017-01-13] MEDS ORDERED: RAMIPRIL 5 MG CAPSULE (FP) PO SCH (21:15)
[2017-01-13] MEDS ORDERED: IBUPROFEN 400 MG TABLET (FP) PO ONE (21:19)
[2017-01-13] MEDS: HYDROCHLOROTHIAZIDE 25 MG TABLET (FP) PO SCH (21:33)
[2017-01-14] MEDS: METHADONE HCL 10 MG TABLET PO SCH (05:54)
[2017-01-14] MEDS: HEPARIN NA (PORCINE) 5,000 UNITS/ML 1ML VIAL SQ SCH ×3 (05:55→21:43)
[2017-01-14 07:04] LABS: BASOPHIL 0.3 % (0-2.0); EOSINOPHIL 1.2 % (0-4.5); MCH 33.1 pg (25.7-33.7); MCHC 34.5 g/dl (32.0-36.0); MEAN CELL VOLUME 96.1 fl (80-96); MEAN PLT VOLUME 8.6 fl (7.5-11.1); PLATELET COUNT 249 K/MM3 (134-434); RDW 12.9 % (11.6-15.6); WHITE BLOOD COUNT 11.6 K/mm3 (4.0-10.0)
[2017-01-14 07:33] LABS: ALBUMIN 3.8 g/dl (3.4-5.0); ANION GAP 11 (8-16); CALCIUM 10.2 mg/dL (8.5-10.1); CO2 38 mmol/L (21-32); CREATININE 0.6 mg/dL (0.55-1.02); GLUCOSE,RANDOM 94 mg/dL (74-106); MAGNESIUM 2.2 mg/dL (1.8-2.4); SGOT/AST 23 U/L (15-37); SGPT/ALT 35 U/L (12-78)
[2017-01-14 07:35] LABS: ALK PHOS 90 U/L (45-117); BILIRUBIN,TOTAL 0.9 mg/dL (0.2-1.0); TOT PROT 7.2 g/dl (6.4-8.2)
--- NOTE | 2017-01-14 09:50 | PN ---
Physical Exam: SUBJECTIVE: Patient seen and examined. Denies shortness of breath. OBJECTIVE: patient refusing bipap, refusing ABG, refusing ECHO Stressed importance of these test, still refuses Hypertensive overnight, cardiology titrated Altace to 10mg BP remains elevated I called [facility] and spoke to nurse Divine. I informed her of patient's admission and concern over opioid toxicity. Informed her that the methadone dose has been decreased secondary to respiratory failure and AMS on admission. Vital Signs Period Temp Pulse Resp BP Sys/Hitchcock Pulse Ox Last 24 Hr 97.7 F-98.1 F 61-81 16-20 143-186/89-108 97-100 GENERAL: The patient is awake, alert, and fully oriented, in no acute distress. HEAD: Normal with no signs of trauma. EYES: PERRL, extraocular movements intact, sclera anicteric, conjunctiva clear. No ptosis. ENT: Ears normal, nares patent, oropharynx clear without exudates, moist mucous membranes. NECK: Trachea midline, full range of motion, supple. LUNGS: Breath sounds equal, clear to auscultation bilaterally, no wheezes, no crackles, no accessory muscle use. HEART: Regular rate and rhythm, S1, S2 without murmur, rub or gallop. ABDOMEN: Soft, nontender, nondistended, normoactive bowel sounds, no guarding, no rebound, no hepatosplenomegaly, no masses. EXTREMITIES: no edema. NEUROLOGICAL: Normal speech, gait not observed. PSYCH: Normal mood, normal affect. SKIN: Warm, dry, normal turgor, no rashes or lesions noted Laboratory Results - last 24 hr 01/13/17 01/13/17 01/14/17 09:33 09:33 05:35 WBC RBC Hgb Hct MCV MCHC RDW Plt Count MPV Neutrophils % Lymphocytes % Monocytes % Eosinophils % Basophils % Sodium 138 136 Potassium 3.2 L D 3.3 L Chloride 91 L 87 L Carbon Dioxide 39 H 38 H Anion Gap 8 11 BUN 5 L D 8 D Creatinine 0.6 0.6 Creat Clearance w eGFR > 60 > 60 Random Glucose 102 94 Calcium 9.3 10.2 H Magnesium 2.2 Total Bilirubin 0.6 D 0.9 D AST 28 23 ALT 38 D 35 Alkaline Phosphatase 75 D 90 Creatine Kinase 170 D CK-MB (CK-2) < 1.000 Total Protein 6.6 7.2 Albumin 3.6 D 3.8 01/14/17 05:35 WBC 11.6 H RBC 4.89 Hgb 16.2 H D Hct 47.0 H MCV 96.1 H MCHC 34.5 RDW 12.9 Plt Count 249 MPV 8.6 Neutrophils % 66.0 Lymphocytes % 24.3 D Monocytes % 8.2 Eosinophils % 1.2 D Basophils % 0.3 Sodium Potassium Chloride Carbon Dioxide Anion Gap BUN Creatinine Creat Clearance w eGFR Random Glucose Calcium Magnesium Total Bilirubin AST ALT Alkaline Phosphatase Creatine Kinase CK-MB (CK-2) Total Protein Albumin Active Medications Generic Name Dose Route Start Last Admin Trade Name Freq PRN Reason Stop Dose Admin Albuterol/Ipratropium 1 amp 01/10/17 06:38 01/10/17 06:45 Duoneb - NEB 1 amp Q4H PRN Administration SHORTNESS OF BREATH Amlodipine Besylate 10 mg 01/14/17 10:00 Norvasc - PO DAILY [facility] Azithromycin 250 mg 01/12/17 13:00 01/13/17 09:20 Zithromax - PO 250 mg DAILY [facility] Administration Cefuroxime Axetil 500 mg 01/12/17 13:00 01/13/17 21:34 Ceftin - PO 500 mg BID PAT[facility] Administration Heparin Sodium (Porcine) 5,000 unit 01/10/17 22:00 01/14/17 05:55 Heparin - SQ 5,000 unit TID PATRICIA Administration Hydrochlorothiazide 25 mg 01/13/17 21:15 01/13/17 21:33 Hctz - PO 25 mg DAILY [facility] Administration Methadone HCl 20 mg 01/11/17 17:18 01/14/17 05:54 Dolophine - PO 20 mg DAILY@0600 [facility] Administration Nicotine 21 mg 01/13/17 11:15 01/13/17 11:18 Nicoderm Patch - TD 21 mg DAILY [facility] Administration Potassium Chloride 20 meq 01/14/17 10:00 K-Dur - PO DAILY [facility] Pregabalin 50 mg 01/09/17 22:00 01/13/17 21:35 Lyrica - PO Not Given BID PATR[facility] Ramipril 10 mg 01/14/17 10:00 Altace - PO DAILY [facility] ASSESSMENT/PLAN: Patient is a 51 year old female with a significant past medical history of polysubstance abuse and CVA who presented to the ER on 01/09/2017 with AMS requiring Narcan for suspected opioid overdose. Neurology: Acute metabolic encephalopathy - resolved Assessment/Plan: alert and oriented x 3, no neuro deficits noted on exam On Methadone 20mg daily which was decreased secondary to AMS and unresponsiveness I called [facility] methadone and spoke to nurse Divine. I informed her of patient's admission and concern over opioid toxicity. Informed her that the methadone dose has been decreased secondary to respiratory failure and AMS on admission. Will continue on this dose and monitor. Dr. Yaniv Good following Neuro following CVA - chronic/history of Assessment/Plan: Head CT negative for any acute pathology Monitor mental status Muscular/Skeletal: Rhabdomyolysis - resolved Assessment/Plan: continue to trend Pulmonary: Acute Respiratory Failure - likely opioid induced - resolved Assessment/Plan: ABG ordered to evaluated for home bipap, pt refusing ABG, refusing bipap pre and post completed, pt is tolerating room air Pulmonary following Cardiology Hypertension - remains elevated Assessment/Plan: BP remains elevated Titrated Norvasc to 10mg, Ramipril to 10mg Cardiology following, pt refusing ordered Echo Cardiology notes reviewed F.E.N. Fluids: tolerating PO Electrolytes: monitor/hypoK repleted Nutrition: low sodium Prophylaxis: DVT: Heparin 5,000u sq tid Disposition: Full Code. Patient gets her methadone at an outpatient clinic: [facility]. They are aware of pt admission and Methadone dose decrease. Visit type - Emergency Visit Emergency Visit: Yes ED Registration Date: 01/09/17 Care time: The patient presented to the Emergency Department on the above date and was hospitalized for further evaluation of their emergent condition. - New Patient This patient is new to me today: No - Critical Care Critical Care patient: No - Discharge Referral Referred to [facility] Med [facility] No
[2017-01-14] MEDS ORDERED: POTASSIUM CHLORIDE TABS 20 MEQ TABLET.ER (FP) PO SCH (10:00)
[2017-01-14] MEDS: CEFUROXIME AXETIL 500 MG TABLET PO SCH ×2 (10:41→21:44)
[2017-01-14] MEDS: RAMIPRIL 5 MG CAPSULE (FP) PO SCH (10:41)
[2017-01-14] MEDS: HYDROCHLOROTHIAZIDE 25 MG TABLET (FP) PO SCH (10:42)
[2017-01-14] MEDS: PREGABALIN 50 MG CAPSULE PO SCH ×2 (10:42→21:45)
[2017-01-14] MEDS: amLODIPine BESYLATE 5 MG TABLET (FP) PO SCH (10:42)
[2017-01-14] MEDS: NICOTINE 21 MG/24 HOURS TOPICAL PATCH TD SCH (10:43)
--- NOTE | 2017-01-14 11:03 | PN ---
Progress Note, Physician History of Present Illness: pulmonary alert,feeling better,sob improving. - Current Medication List Current Medications: Active Medications Albuterol/Ipratropium (Duoneb -) 1 amp NEB Q4H PRN PRN Reason: SHORTNESS OF BREATH Last Admin: 01/10/17 06:45 Dose: 1 amp Amlodipine Besylate (Norvasc -) 10 mg PO DAILY [facility] Last Admin: 01/14/17 10:42 Dose: 10 mg Azithromycin (Zithromax -) 250 mg PO DAILY [facility] Last Admin: 01/13/17 09:20 Dose: 250 mg Cefuroxime Axetil (Ceftin -) 500 mg PO BID [facility] Last Admin: 01/14/17 10:41 Dose: 500 mg Heparin Sodium (Porcine) (Heparin -) 5,000 unit SQ TID [facility] Last Admin: 01/14/17 05:55 Dose: 5,000 unit Hydrochlorothiazide (Hctz -) 25 mg PO DAILY [facility] Last Admin: 01/14/17 10:42 Dose: 25 mg Methadone HCl (Dolophine -) 20 mg PO DAILY@0600 [facility] Last Admin: 01/14/17 05:54 Dose: 20 mg Nicotine (Nicoderm Patch -) 21 mg TD DAILY [facility] Last Admin: 01/14/17 10:43 Dose: 21 mg Potassium Chloride (K-Dur -) 20 meq PO DAILY [facility] Last Admin: 01/14/17 10:41 Dose: 20 meq Pregabalin (Lyrica -) 50 mg PO BID [facility] Last Admin: 01/14/17 10:42 Dose: 50 mg Ramipril (Altace -) 10 mg PO DAILY [facility] Last Admin: 01/14/17 10:41 Dose: 10 mg - Objective Vital Signs: Vital Signs Temperature 97.7 F 01/14/17 06:00 Pulse Rate 82 01/14/17 10:08 Respiratory Rate 18 01/14/17 06:00 Blood Pressure 146/89 01/14/17 06:00 O2 Sat by Pulse Oximetry (%) 93 L 01/14/17 10:08 Constitutional: Yes: Well Nourished, Calm Eyes: Yes: WNL HENT: Yes: WNL Neck: Yes: WNL Cardiovascular: Yes: Regular Rate and Rhythm, S1, S2 Respiratory: Yes: CTA Bilaterally Gastrointestinal: Yes: Normal Bowel Sounds, Soft Extremities: Yes: WNL Edema: No Labs: CBC, BMP 01/14/17 05:35 01/14/17 05:35 Assessment/Plan Problem List - Problems (1) Acute on chronic respiratory failure with hypercapnia Code(s): J96.22 - ACUTE AND CHRONIC RESPIRATORY FAILURE WITH HYPERCAPNIA (2) Altered mental status Code(s): R41.82 - ALTERED MENTAL STATUS, UNSPECIFIED IMPROVED (3) Opiate dependence Code(s): F11.20 - OPIOID DEPENDENCE, UNCOMPLICATED (4) Hypertension Code(s): I10 - ESSENTIAL (PRIMARY) HYPERTENSION (5) COPD (chronic obstructive pulmonary disease) Code(s): J44.9 - CHRONIC OBSTRUCTIVE PULMONARY DISEASE, UNSPECIFIED (6) Rhabdomyolysis Code(s): M62.82 - RHABDOMYOLYSIS Assessment/Plan Altered Mental Status improved Acute on Chronic Hypercapneic Respiratory Failure Opiate Dependence COPD Rhabdomyolysis resolved - chronic hypercapnea likely due to her opiate/methadone dependence - BiPAP while sleeping and PRN during day - pt refusing abg,does not want home bipap - attempt to taper down opiates - smoking cessation - outpt PFTs - DVT prophylaxis DR NG
--- NOTE | 2017-01-14 11:30 | PN ---
Progress Note (short form) - Note Progress Note: Chief Complaint: AMS History of Present Illness: denies cp, sob, palpit, leg swelling. Current Medications Albuterol/Ipratropium (Duoneb -) 1 amp NEB Q4H PRN PRN Reason: SHORTNESS OF BREATH Last Admin: 01/10/17 06:45 Dose: 1 amp Amlodipine Besylate (Norvasc -) 10 mg PO DAILY [facility] Last Admin: 01/14/17 10:42 Dose: 10 mg Azithromycin (Zithromax -) 250 mg PO DAILY [facility] Last Admin: 01/13/17 09:20 Dose: 250 mg Cefuroxime Axetil (Ceftin -) 500 mg PO BID [facility] Last Admin: 01/14/17 10:41 Dose: 500 mg Heparin Sodium (Porcine) (Heparin -) 5,000 unit SQ TID [facility] Last Admin: 01/14/17 05:55 Dose: 5,000 unit Hydrochlorothiazide (Hctz -) 25 mg PO DAILY [facility] Last Admin: 01/14/17 10:42 Dose: 25 mg Methadone HCl (Dolophine -) 20 mg PO DAILY@0600 [facility] Last Admin: 01/14/17 05:54 Dose: 20 mg Nicotine (Nicoderm Patch -) 21 mg TD DAILY [facility] Last Admin: 01/14/17 10:43 Dose: 21 mg Potassium Chloride (K-Dur -) 20 meq PO DAILY [facility] Last Admin: 01/14/17 10:41 Dose: 20 meq Pregabalin (Lyrica -) 50 mg PO BID [facility] Last Admin: 01/14/17 10:42 Dose: 50 mg Ramipril (Altace -) 10 mg PO DAILY [facility] Last Admin: 01/14/17 10:41 Dose: 10 mg Vital Signs - 24 hr 01/13/17 01/13/17 01/13/17 11:30 14:12 18:00 Temperature 98.1 F 97.8 F Pulse Rate 74 70 81 Respiratory 16 16 18 Rate Blood Pressure 186/108 166/96 160/102 O2 Sat by Pulse Oximetry (%) 01/13/17 01/14/17 01/14/17 21:00 02:00 06:00 Temperature 97.7 F 97.9 F 97.7 F Pulse Rate 69 61 65 Respiratory 18 20 18 Rate Blood Pressure 160/107 143/93 146/89 O2 Sat by Pulse 100 Oximetry (%) 01/14/17 10:08 Temperature Pulse Rate 82 Respiratory Rate Blood Pressure O2 Sat by Pulse 93 L Oximetry (%) Intake & Output 01/12/17 01/13/17 01/14/17 01/15/17 07:59 07:59 07:59 07:59 Intake Total 1500 550 580 Balance 1500 550 580 - Objective Vital Signs: Constitutional: Yes: No Distress, Calm, Obese Cardiovascular: Yes: Regular Rate and Rhythm, S1, S2. No: Gallop, Murmur Respiratory: Yes: Regular, CTA Bilaterally. No: Accessory Muscle Use, Rales, Wheezes Extremities: No: Cold Edema: No Neurological: Yes: Alert. No: Seizure Psychiatric: No: Agitated Labs: CBC, BMP 01/14/17 05:35 01/14/17 05:35 Laboratory Tests 01/14/17 05:35 Calcium 10.2 H - ....Imaging EKG: Other (tele: NSR, brief atrial run) ECG 01/11: NSR; normal axis and intervals (incl QT). NSTWAs anterior and inferior , more prominent in V3/V4 vs prior) Assessment/Plan echo 09/2014: tds, nl lv/rv, no sig valve path, mild ao root dil cxr: clear lungs a/p: 51 f hx htn, dm, hld, cva, drug abuse, here with ams. ams: -possible seizure vs drug overdose/hypercapnea -mgmt per hospitalist/pulm abnormal ECG: -nonspecific TWIs inferior and anterior, worse on 01/11 vs DOA (normal QT) -? methadone effect -ongoing electrolyte repletion prn K/Mag -check echo (pt. refused) -repeat CE's negative. - no events on tele, qt shortened on progressive ekg's. -in absence of suspected or possible angina sx's, will defer stress testing htn: -cont madalyn -01/12-01/13: bp remains suboptimal--added amlodipine 5mg 01/12. uptitrated 01/13. added hctz overnight for elevated bp's. (Today Ca slightly elevated and K low, if abnormalities persist may need to choose alternate medication) con't to monitor. hld: -hold statin given recent rhabdo h/o cva: -no acute findings on ct head here -per pmd/neuro drug abuse: -cessation discussed here -per hospitalist/psych + tobacco - smoking cessation counseling. added nicotine patch. abnl cardiac markers: -total ck is elevated (2300, trending up, today's pending) as well as ck mb but ckmb index is normal. trop x3 WNL -these lab values are not consistent with acs or myocardial injury; cpk likely skeletal muscle origin sec to sz (found foaming at the mouth per son) (-not on statin per ER home med list) -renal fxn normal, ck trending down OK to d/c telemetry.
[2017-01-14] MEDS: AZITHROMYCIN 250 MG TABLET (FP) PO SCH (13:51)
[2017-01-14] MEDS: IBUPROFEN 400 MG TABLET (FP) PO PRN ×2 (14:36→21:45)
[2017-01-15] MEDS: METHADONE HCL 10 MG TABLET PO SCH (06:10)
[2017-01-15] MEDS: IBUPROFEN 400 MG TABLET (FP) PO PRN ×2 (06:15→17:24)
[2017-01-15] MEDS: HEPARIN NA (PORCINE) 5,000 UNITS/ML 1ML VIAL SQ SCH ×3 (06:16→21:39)
[2017-01-15 07:30] LABS: BASOPHIL 0.4 % (0-2.0); EOSINOPHIL 1.6 % (0-4.5); MCH 32.8 pg (25.7-33.7); MCHC 34.1 g/dl (32.0-36.0); MEAN CELL VOLUME 96.2 fl (80-96); MEAN PLT VOLUME 8.7 fl (7.5-11.1); NEUTROPHILS 54.4 % (42.8-82.8); PLATELET COUNT 277 K/MM3 (134-434); RDW 13.3 % (11.6-15.6)
[2017-01-15] MEDS: POTASSIUM CHLORIDE TABS 20 MEQ TABLET.ER (FP) PO ONE ×3 (08:17→13:09)
[2017-01-15 08:22] LABS: ALBUMIN 3.9 g/dl (3.4-5.0); ALK PHOS 88 U/L (45-117); ANION GAP 12 (8-16); BILIRUBIN,TOTAL 0.6 mg/dL (0.2-1.0); CALCIUM 10.7 mg/dL (8.5-10.1); CO2 34 mmol/L (21-32); CREATININE 0.8 mg/dL (0.55-1.02); GLUCOSE,RANDOM 95 mg/dL (74-106); SGOT/AST 19 U/L (15-37); SGPT/ALT 31 U/L (12-78); TOT PROT 7.4 g/dl (6.4-8.2)
[2017-01-15] MEDS: RAMIPRIL 5 MG CAPSULE (FP) PO SCH (09:34)
[2017-01-15] MEDS: amLODIPine BESYLATE 5 MG TABLET (FP) PO SCH (09:35)
[2017-01-15] MEDS: HYDROCHLOROTHIAZIDE 25 MG TABLET (FP) PO SCH (09:35)
[2017-01-15] MEDS: PREGABALIN 50 MG CAPSULE PO SCH ×2 (09:35→21:39)
[2017-01-15] MEDS: AZITHROMYCIN 250 MG TABLET (FP) PO SCH (09:36)
[2017-01-15] MEDS: NICOTINE 21 MG/24 HOURS TOPICAL PATCH TD SCH (09:36)
--- NOTE | 2017-01-15 09:55 | PN ---
Physical Exam: SUBJECTIVE: Patient seen and examined. She is very upset and frustrated regarding the methadone dose. She is asking for the dose to be increased, but I reminded her that she had an unresponsive event on 01/11 when the Methadone was at 30mg. She states that she had taken Trazadone with the Methadone and that is why she went unresponsive. OBJECTIVE: I called Dr. Yaniv Good and brought him up to date on events and patient's request for the increased methadone use, Dr. Yaniv Good to see patient today. Patient's potassium is 3.0, ordered potassium 40meq today with a repeat labs Patient refusing to take the potassium supplement unless her methadone is increased, but now in agreement to take the potassium supplement She is refusing repeat ABG, Echocardiogram and bipap She verbalizes back pain, Lyrica increased to 100mg BID Blood pressures have improved mild hypercalcemia: Corrected calcium 10.8 I had a conversation with patient with top case assembler present regarding the methadone dosage. I again informed her that I will not increase the methadone because of her unresponsive episode while on the higher dose of methadone. I spoke to patient's primary PCP Dr. Justyna Ha and updated her on patient's admission and current clinical status. I made follow up appointment with Dr Ha who will see patient on January 20 @11a.m at the [place] office. PCP to repeat blood work and monitor patient. Patient made aware of this appointment and she is in agreement to go. Vital Signs Period Temp Pulse Resp BP Sys/Hitchcock Pulse Ox Last 24 Hr 98.2 F-98.9 F 68-103 18-20 134-149/80-110 93-103 GENERAL: The patient is awake, alert, and fully oriented, upset HEAD: Normal with no signs of trauma. EYES: PERRL, extraocular movements intact, sclera anicteric, conjunctiva clear. No ptosis. ENT: Ears normal, nares patent, oropharynx clear without exudates, moist mucous membranes. NECK: Trachea midline, full range of motion, supple. LUNGS: Breath sounds equal, clear to auscultation bilaterally, no wheezes, no crackles, no accessory muscle use. HEART: Regular rate and rhythm, S1, S2 without murmur, rub or gallop. ABDOMEN: Soft, nontender, nondistended, normoactive bowel sounds, no guarding, no rebound, no hepatosplenomegaly, no masses. EXTREMITIES: no edema. NEUROLOGICAL: Normal speech, gait not observed. PSYCH: Normal mood, normal affect. SKIN: Warm, dry, normal turgor, no rashes or lesions noted Laboratory Results - last 24 hr 01/15/17 01/15/17 05:10 05:10 WBC 13.0 H RBC 5.34 H Hgb 17.5 H Hct 51.3 H MCV 96.2 H MCHC 34.1 RDW 13.3 Plt Count 277 MPV 8.7 Neutrophils % 54.4 Lymphocytes % 35.0 D Monocytes % 8.6 Eosinophils % 1.6 Basophils % 0.4 Sodium 136 Potassium 3.0 L Chloride 90 L Carbon Dioxide 34 H Anion Gap 12 BUN 14 D Creatinine 0.8 D Creat Clearance w eGFR > 60 Random Glucose 95 Calcium 10.7 H Total Bilirubin 0.6 D AST 19 ALT 31 Alkaline Phosphatase 88 Total Protein 7.4 Albumin 3.9 Active Medications Generic Name Dose Route Start Last Admin Trade Name Everettq PRN Reason Stop Dose Admin Amlodipine Besylate 10 mg 01/14/17 10:00 01/15/17 09:35 Norvasc - PO 10 mg DAILY [facility] Administration Azithromycin 250 mg 01/12/17 13:00 01/15/17 09:36 Zithromax - PO 250 mg DAILY [facility] Administration Cefuroxime Axetil 500 mg 01/12/17 13:00 01/14/17 21:44 Ceftin - PO 500 mg BID [facility] Administration Heparin Sodium (Porcine) 5,000 unit 01/10/17 22:00 01/15/17 06:16 Heparin - SQ 5,000 unit TID [facility] Administration Hydrochlorothiazide 25 mg 01/13/17 21:15 01/15/17 09:35 Hctz - PO 25 mg DAILY [facility] Administration Ibuprofen 400 mg 01/14/17 14:04 01/15/17 06:15 Motrin - PO 400 mg Q6H PRN Administration PAIN Methadone HCl 20 mg 01/11/17 17:18 01/15/17 06:10 Dolophine - PO 20 mg DAILY@0600 [facility] Administration Nicotine 21 mg 01/13/17 11:15 01/15/17 09:36 Nicoderm Patch - TD 21 mg DAILY [facility] Administration Potassium Chloride 20 meq 01/15/17 10:00 01/15/17 09:38 K-Dur - PO 01/15/17 12:00 Not Given DAILY [facility] Potassium Chloride 40 meq 01/16/17 10:00 K-Dur - PO DAILY [facility] Pregabalin 100 mg 01/15/17 09:50 Lyrica - PO BID [facility] Ramipril 10 mg 01/14/17 10:00 01/15/17 09:34 Altace - PO 10 mg DAILY [facility] Administration ASSESSMENT/PLAN: Patient is a 51 year old female with a significant past medical history of polysubstance abuse and CVA who presented to the ER on 01/09/2017 with AMS requiring Narcan for suspected opioid overdose. Neurology: Acute metabolic encephalopathy - resolved Assessment/Plan: alert and oriented x 3, no neuro deficits noted on exam On Methadone 20mg daily which was decreased secondary to AMS and unresponsiveness Will continue on this dose and monitor. I spoke to patient's primary PCP Dr. Justyna Ha and updated her on patient's admission and current clinical status. I made follow up appointment with Dr Ha who will see patient on January 20 @11a.m at the [facility]. PCP to repeat blood work and monitor patient as an outpatient Dr. Yainv Good following CVA - chronic/history of Assessment/Plan: Head CT negative for any acute pathology Monitor mental status Muscular/Skeletal: Rhabdomyolysis - resolved Assessment/Plan: continue to trend Pulmonary: Acute Respiratory Failure - likely opioid induced - resolved Assessment/Plan: ABG ordered to evaluated for home bipap, pt refusing ABG, refusing bipap pre and post completed, pt is tolerating room air Pulmonary following Cardiology Hypertension - improved Assessment/Plan: BP remains elevated Titrated Norvasc to 10mg, Ramipril to 10mg Cardiology following, pt refusing ordered Echo F.E.N. Fluids: tolerating PO Electrolytes: monitor/hypoK repleted Nutrition: low sodium Prophylaxis: DVT: Heparin 5,000u sq tid Disposition: Full Code. Patient gets her methadone at an outpatient clinic: [facility]. They are aware of pt admission and Methadone dose decrease. Visit type - Emergency Visit Emergency Visit: Yes ED Registration Date: 01/09/17 Care time: The patient presented to the Emergency Department on the above date and was hospitalized for further evaluation of their emergent condition. - New Patient This patient is new to me today: No - Critical Care Critical Care patient: No - Discharge Referral Referred to [facility] Med [facility].C.: No
[2017-01-15] MEDS ORDERED: POTASSIUM CHLORIDE TABS 20 MEQ TABLET.ER (FP) PO SCH ×2 (10:00)
[2017-01-15] MEDS ORDERED: PT OWN MED DRAWER 7, Y5N ONE ×2 (10:31→10:34)
[2017-01-15] MEDS: CEFUROXIME AXETIL 500 MG TABLET PO SCH ×2 (10:32→21:36)
--- NOTE | 2017-01-15 10:49 | PN ---
Progress Note, Physician History of Present Illness: pulmonary alert,feeling better,-sob,-cp - Current Medication List Current Medications: Active Medications Amlodipine Besylate (Norvasc -) 10 mg PO DAILY [facility] Last Admin: 01/15/17 09:35 Dose: 10 mg Azithromycin (Zithromax -) 250 mg PO DAILY [facility] Last Admin: 01/15/17 09:36 Dose: 250 mg Cefuroxime Axetil (Ceftin -) 500 mg PO BID [facility] Last Admin: 01/15/17 10:32 Dose: 500 mg Heparin Sodium (Porcine) (Heparin -) 5,000 unit SQ TID [facility] Last Admin: 01/15/17 06:16 Dose: 5,000 unit Hydrochlorothiazide (Hctz -) 25 mg PO DAILY [facility] Last Admin: 01/15/17 09:35 Dose: 25 mg Ibuprofen (Motrin -) 400 mg PO Q6H PRN PRN Reason: PAIN Last Admin: 01/15/17 06:15 Dose: 400 mg Methadone HCl (Dolophine -) 20 mg PO DAILY@0600 [facility] Last Admin: 01/15/17 06:10 Dose: 20 mg Nicotine (Nicoderm Patch -) 21 mg TD DAILY [facility] Last Admin: 01/15/17 09:36 Dose: 21 mg Potassium Chloride (K-Dur -) 20 meq PO DAILY [facility] Stop: 01/15/17 12:00 Last Admin: 01/15/17 09:38 Dose: Not Given Potassium Chloride (K-Dur -) 40 meq PO DAILY [facility] Pregabalin (Lyrica -) 100 mg PO BID [facility] Ramipril (Altace -) 10 mg PO DAILY [facility] Last Admin: 01/15/17 09:34 Dose: 10 mg - Objective Vital Signs: Vital Signs Temperature 98.5 F 01/15/17 06:00 Pulse Rate 82 01/15/17 10:28 Respiratory Rate 20 01/15/17 08:04 Blood Pressure 142/87 01/15/17 08:04 O2 Sat by Pulse Oximetry (%) 92 L 01/15/17 10:28 Constitutional: Yes: Well Nourished, Calm Eyes: Yes: WNL HENT: Yes: WNL Neck: Yes: WNL Cardiovascular: Yes: Regular Rate and Rhythm, S1, S2 Respiratory: Yes: CTA Bilaterally Gastrointestinal: Yes: Normal Bowel Sounds, Soft Extremities: Yes: WNL Edema: No Labs: CBC, BMP 01/15/17 05:10 01/15/17 05:10 Assessment/Plan Problem List - Problems (1) Acute on chronic respiratory failure with hypercapnia Code(s): J96.22 - ACUTE AND CHRONIC RESPIRATORY FAILURE WITH HYPERCAPNIA (2) Altered mental status Code(s): R41.82 - ALTERED MENTAL STATUS, UNSPECIFIED IMPROVED (3) Opiate dependence Code(s): F11.20 - OPIOID DEPENDENCE, UNCOMPLICATED (4) Hypertension Code(s): I10 - ESSENTIAL (PRIMARY) HYPERTENSION (5) COPD (chronic obstructive pulmonary disease) Code(s): J44.9 - CHRONIC OBSTRUCTIVE PULMONARY DISEASE, UNSPECIFIED (6) Rhabdomyolysis Code(s): M62.82 - RHABDOMYOLYSIS Assessment/Plan Altered Mental Status improved Acute on Chronic Hypercapneic Respiratory Failure Opiate Dependence COPD Rhabdomyolysis resolved - chronic hypercapnea likely due to her opiate/methadone dependence - does not want home bipap - attempt to taper down opiates - smoking cessation - outpt PFTs - DVT prophylaxis - abg DR NG
--- NOTE | 2017-01-15 11:32 | PN ---
Progress Note (short form) - Note Progress Note: Chief Complaint: AMS History of Present Illness: denies cp, sob, palpit, leg swelling. Current Medications Generic Name Dose Route Start Last Admin Trade Name Johnathon PRN Reason Stop Dose Admin Amlodipine Besylate 10 mg 01/14/17 10:00 01/15/17 09:35 Norvasc - PO 10 mg DAILY PAT[facility]IA Administration Azithromycin 250 mg 01/12/17 13:00 01/15/17 09:36 Zithromax - PO 250 mg DAILY [facility] Administration Cefuroxime Axetil 500 mg 01/12/17 13:00 01/15/17 10:32 Ceftin - PO 500 mg BID PAT[facility]IA Administration Heparin Sodium (Porcine) 5,000 unit 01/10/17 22:00 01/15/17 06:16 Heparin - SQ 5,000 unit TID PATRICIA Administration Hydrochlorothiazide 25 mg 01/13/17 21:15 01/15/17 09:35 Hctz - PO 25 mg DAILY [facility] Administration Ibuprofen 400 mg 01/14/17 14:04 01/15/17 06:15 Motrin - PO 400 mg Q6H PRN Administration PAIN Methadone HCl 20 mg 01/11/17 17:18 01/15/17 06:10 Dolophine - PO 20 mg DAILY@0600 PATRICIA Administration Nicotine 21 mg 01/13/17 11:15 01/15/17 09:36 Nicoderm Patch - TD 21 mg DAILY [facility] Administration Potassium Chloride 20 meq 01/15/17 10:00 01/15/17 09:38 K-Dur - PO 01/15/17 12:00 Not Given DAILY PATRICIA Potassium Chloride 40 meq 01/16/17 10:00 K-Dur - PO DAILY [facility] Pregabalin 100 mg 01/15/17 22:00 Lyrica - PO BID [facility] Ramipril 10 mg 01/14/17 10:00 01/15/17 09:34 Altace - PO 10 mg DAILY [facility] Administration Vital Signs Period Temp Pulse Resp BP Sys/Hitchcock Pulse Ox Last 24 Hr 98.2 F-98.9 F 78-103 18-20 134-149/80-105 92-103 Constitutional: Yes: No Distress, Calm, Obese Cardiovascular: Yes: Regular Rate and Rhythm, S1, S2. No: Gallop, Murmur Respiratory: Yes: Regular, CTA Bilaterally. No: Accessory Muscle Use, Rales, Wheezes Extremities: No: Cold Edema: No Neurological: Yes: Alert. No: Seizure Psychiatric: No: Agitated no diaphoresis jaundice Labs: CBC, BMP 01/15/17 05:10 01/15/17 05:10 EKG: Other (tele: SR) ECG 01/11: NSR; normal axis and intervals (incl QT). NSTWAs anterior and inferior , more prominent in V3/V4 vs prior) echo 09/2014: tds, nl lv/rv, no sig valve path, mild ao root dil cxr: clear lungs a/p: 51 f hx htn, dm, hld, cva, drug abuse, here with ams. ams: -possible seizure vs drug overdose/hypercapnea -mgmt per hospitalist/pulm abnormal ECG: -nonspecific TWIs inferior and anterior, worse on 01/11 vs DOA (normal QT) -? methadone effect -ongoing electrolyte repletion prn K/Mag -check echo (pt. refused) -repeat CE's negative. -no events on tele, qt shortened on progressive ekg's. -in absence of suspected or possible angina sx's, will defer stress testing htn: -cont current meds hld: -holding statin given recent rhabdo h/o cva: -no acute findings on ct head here -per pmd/neuro drug abuse: -cessation discussed here -per hospitalist/psych + tobacco - smoking cessation counseling. abnl cardiac markers: -total ck is elevated (2300, trending up, today's pending) as well as ck mb but ckmb index is normal. trop x3 WNL -these lab values are not consistent with acs or myocardial injury; cpk likely skeletal muscle origin sec to sz (found foaming at the mouth per son) (-not on statin per ER home med list) -renal fxn normal, ck trending down OK to d/c telemetry.
[2017-01-15 12:37] LABS: ALLENS TEST POSITIVE; ART PUNCT SITE LEFT RADIAL; ARTERIAL BLD GAS O2 SATURATION 98.5 % (90-98.9); ARTERIAL BLOOD GAS BASE EXCESS 7.1 meq/l (-2-2); ARTERIAL BLOOD GAS HCO3 29.1 meq/L (22-26); LPM/O2% 21%; PT. ON O2? NO; TYPE OF O2 ROOM AIR
[2017-01-15 12:39] LABS: ARTERIAL BLOOD GAS pH 7.55 (7.35-7.45)
[2017-01-15] MEDS ORDERED: PREGABALIN 50 MG CAPSULE PO ONE (12:52)
[2017-01-15] MEDS ORDERED: MINERAL OIL/PETROLAT/WATER TOPICAL CREAM 454 GM JAR TP PRN (12:52)
[2017-01-15] MEDS ORDERED: POTASSIUM CHLORIDE TABS 20 MEQ TABLET.ER (FP) PO ONE ×3 (13:35→22:00)
--- NOTE | 2017-01-15 18:17 | PN ---
S Progress Note Note: Pt. claims that she has withdrawal sx. in late afternoons because methadone dose is not enough.Staff tells me that she became drowsy on methadone 30mg. Pt. agrees to go up to 25mg for now & if she tolerates it, we'll increase her back to 30mg.
[2017-01-15] MEDS: ONDANSETRON *ODT* 4 MG TABLET SL PRN (18:53)
[2017-01-16] MEDS ORDERED: METHADONE 20 MG, METHADONE 5 MG PO SCH (06:00)
[2017-01-16] MEDS ORDERED: METHADONE HCL 10 MG TABLET PO SCH (06:00)
[2017-01-16] MEDS ORDERED: METHADONE HCL 5 MG TABLET ONE (06:25)
[2017-01-16] MEDS ORDERED: METHADONE HCL 10 MG TABLET ONE (06:25)
[2017-01-16] MEDS: HEPARIN NA (PORCINE) 5,000 UNITS/ML 1ML VIAL SQ SCH (06:32)
[2017-01-16 08:58] LABS: CALCIUM 9.9 mg/dL (8.5-10.1); COCKROFT - GAULT 106.114; CREATININE 0.9 mg/dL (0.55-1.02)
[2017-01-16] MEDS: NICOTINE 21 MG/24 HOURS TOPICAL PATCH TD SCH (09:59)
[2017-01-16] MEDS: RAMIPRIL 5 MG CAPSULE (FP) PO SCH (09:59)
[2017-01-16] MEDS: amLODIPine BESYLATE 5 MG TABLET (FP) PO SCH (10:00)
[2017-01-16] MEDS ORDERED: POTASSIUM CHLORIDE TABS 20 MEQ TABLET.ER (FP) PO SCH ×2 (10:00)
[2017-01-16] MEDS: PREGABALIN 50 MG CAPSULE PO SCH (10:00)
[2017-01-16] MEDS: HYDROCHLOROTHIAZIDE 25 MG TABLET (FP) PO SCH (10:00)
[2017-01-16] MEDS: AZITHROMYCIN 250 MG TABLET (FP) PO SCH (10:00)
[2017-01-16] MEDS: ONDANSETRON *ODT* 4 MG TABLET SL PRN (10:01)
--- NOTE | 2017-01-16 10:13 | DS ---
Physical Exam: SUBJECTIVE: Patient seen and examined at the bedside. She states she is content with the increased methadone of 25mg. She will follow at the outpatient clinic. OBJECTIVE: Potassium levels stable at 3.8 Patient refused echo, and bipap therapy I spoke to patient's primary PCP Dr. Justyna Ha [phone] on 2016 and updated her on patient's admission and current clinical status. I made follow up appointment with Dr Ha who will see patient on January 20 @11a.m at the [place] office. PCP to repeat blood work and monitor patient. Patient made aware of this appointment and she is in agreement to go. Vital Signs Period Temp Pulse Resp BP Sys/Hitchcock Pulse Ox Last 24 Hr 98.0 F-99.0 F 77-89 18-20 114-137/55-97 92-96 PHYSICAL EXAM GENERAL: The patient is awake, alert, and fully oriented, in no acute distress. HEAD: Normal with no signs of trauma. EYES: PERRL, extraocular movements intact, sclera anicteric, conjunctiva clear. ENT: Ears normal, nares patent, oropharynx clear without exudates, moist mucous membranes. NECK: Trachea midline, full range of motion, supple. LUNGS: Breath sounds equal, clear to auscultation bilaterally, no wheezes, no crackles, no accessory muscle use. HEART: Regular rate and rhythm, S1, S2 without murmur, rub or gallop. ABDOMEN: Soft, nontender, nondistended, normoactive bowel sounds, no guarding, no rebound, no hepatosplenomegaly, no masses. EXTREMITIES: 2+ pulses, warm, well-perfused, no edema. NEUROLOGICAL: Cranial nerves II through XII grossly intact. Normal speech, gait not observed. PSYCH: Normal mood, normal affect. SKIN: Warm, dry, normal turgor, no rashes or lesions noted. LABS Laboratory Results - last 24 hr 01/15/17 01/15/17 01/16/17 12:20 15:45 05:48 Puncture Site Left radial ABG pH 7.55 H D ABG pCO2 at Pt Temp 33.6 L D ABG pO2 at Pt Temp 101.0 H D ABG HCO3 29.1 H ABG O2 Sat (Measured) 98.5 ABG O2 Content 23.8 H ABG Base Excess 7.1 H Winston Test Positive O2 Delivery Device Room air Oxygen Flow Rate 21% PEEP 0.0 Sodium 139 Potassium 3.0 L 3.8 D Chloride 97 L Carbon Dioxide 30 Anion Gap 12 BUN 22 H D Creatinine 0.9 Random Glucose 90 Calcium 9.9 HOSPITAL COURSE: Date of Admission:01/09/17 Date of Discharge: 01/16/17 ASSESSMENT/PLAN: Patient is a 51 year old female with a significant past medical history of polysubstance abuse and CVA who presented to the ER on 01/09/2017 with AMS requiring Narcan for suspected opioid overdose. Neurology: Acute metabolic encephalopathy - resolved Assessment/Plan: alert and oriented x 3, no neuro deficits noted on exam Methadone increased by Dr. Yaniv Good to Methadone 25mg I spoke to patient's primary PCP Dr. Justyna Ha and updated her on patient's admission and current clinical status. I made follow up appointment with Dr Ha who will see patient on January 20 @11a.m at the [place] office. PCP to repeat blood work and monitor patient as an outpatient Dr. Yaniv Good following as an outpatient CVA - chronic Assessment/Plan: Head CT negative for any acute pathology Muscular/Skeletal: Rhabdomyolysis - resolved Assessment/Plan: continue to trend Pulmonary: Acute Respiratory Failure - likely opioid induced - resolved Assessment/Plan: ABG ordered to evaluated for home bipap, pt refusing further ABGs, refusing bipap pre and post completed, pt is tolerating room air Pulmonary followed during hospitalization. Cardiology Hypertension - much improved Assessment/Plan: BP improved, pt to follow up with her PCP, appointment made On Norvasc to 10mg, Ramipril to 10mg Pt refusing ordered Echo Disposition: Full Code. Patient gets her methadone at an outpatient clinic: [facility]. Juan Carlos has a follow up appointment with Dr Ha (PCP) who will see patient on January 20 @11a.m at the [place] office. Minutes to complete discharge: 60 Discharge Summary Reason For Visit: ALTERED MENTAL STATUS/RHABDOMYOLSIS Current Active Problems Acute on chronic respiratory failure with hypercapnia (Acute) Altered mental status (Acute) COPD (chronic obstructive pulmonary disease) (Acute) Opiate dependence (Acute) Rhabdomyolysis (Acute) Condition: Improved - Instructions Diet, Activity, Other Instructions: Ms. Alford: You have an appointment with your PCP on January 20 @ 11 a.m. Please see her for repeat lab work and for follow up. All your medications have been called into your pharmacy. Please return with any new or persistent symptoms. Please follow up with Dr. Yaniv Good for methadone maintenance. New medications: Ramipril 10mg daily Lyrica 100mg twice daily [id number] daily Methadone 25mg daily - see Dr. Yaniv Good Potassium 40mg daily Hydrochlorothiazide 25mg daily Stop taking the Metoprolol as this blood pressure medication has been stopped during your hospitalization. Maria M [facility], [employer] [phone] Referrals: Justyna Ha MD [Non Staff, Medical] - Haile Odell MD [Staff Physician] - Disposition: HOME - Home Medications Comprehensive Discharge Medication List: Ambulatory Orders Trazodone HCl [Desyrel -] 200 mg PO HS #7 tablet 03/08/14 Ramipril [Altace] 5 mg PO DAILY #0 capsule 09/14/14 Amlodipine Besylate [Norvasc -] 10 mg PO DAILY #30 tablet 05/14/15 Metoprolol Succinate [Toprol XL -] 100 mg PO DAILY 07/10/15 Oxycodone HCl [Roxicodone -] 15 mg PO BID 06/22/16 Pregabalin [Lyrica -] 50 mg PO BID 06/22/16 Methadone [Dolophine -] 50 mg PO DAILY 01/09/17 This patient is new to me today: No Emergency Visit: Yes ED Registration Date: 01/09/17 Care time: The patient presented to the Emergency Department on the above date and was hospitalized for further evaluation of their emergent condition. Critical Care patient: No - Discharge Referral Referred to [facility] No
--- NOTE | 2017-01-16 11:56 | PN ---
Progress Note (short form) - Note Progress Note: Chief Complaint: AMS History of Present Illness: denies cp, sob, palpit, leg swelling. Vital Signs Period Temp Pulse Resp BP Sys/Hitchcock Pulse Ox Last 24 Hr 98.0 F-99.0 F 77-89 18-20 114-137/55-97 96 Constitutional: Yes: No Distress, Calm, Obese Cardiovascular: Yes: Regular Rate and Rhythm, S1, S2. No: Gallop, Murmur Respiratory: Yes: Regular, CTA Bilaterally. No: Accessory Muscle Use, Rales, Wheezes Extremities: No: Cold Edema: No Neurological: Yes: Alert. No: Seizure Psychiatric: No: Agitated no diaphoresis jaundice Labs: Home Medications Medication Instructions Recorded Amlodipine Besylate [Norvasc -] 10 mg PO DAILY #30 tablet 05/14/15 Amlodipine Besylate [Norvasc -] 10 mg PO DAILY #30 tablet 01/16/17 Hydrochlorothiazide 25 mg PO DAILY #30 tablet 01/16/17 Methadone [Dolophine -] 25 mg PO DAILY@0600 #30 tablet MDD 01/16/17 25mg Potassium Chloride [K-Dur -] 40 meq PO DAILY #30 tab 01/16/17 Pregabalin [Lyrica -] 100 mg PO BID #60 tab MDD 2 tabs 01/16/17 Ramipril [Altace] 10 mg PO DAILY #30 tab 01/16/17 CBC, BMP 01/15/17 05:10 01/16/17 05:48 EKG: Other (tele: SR) ECG 01/11: NSR; normal axis and intervals (incl QT). NSTWAs anterior and inferior , more prominent in V3/V4 vs prior) echo 09/2014: tds, nl lv/rv, no sig valve path, mild ao root dil cxr: clear lungs a/p: 51 f hx htn, dm, hld, cva, drug abuse, here with ams. ams: -possible seizure vs drug overdose/hypercapnea -mgmt per hospitalist/pulm abnormal ECG: -nonspecific TWIs inferior and anterior, worse on 01/11 vs DOA (normal QT) -? methadone effect -ongoing electrolyte repletion prn K/Mag -check echo (pt. refused) -repeat CE's negative. -no events on tele, qt shortened on progressive ekg's. -in absence of suspected or possible angina sx's, will defer stress testing htn: -cont current meds hld: -holding statin given recent rhabdo h/o cva: -no acute findings on ct head here -per pmd/neuro drug abuse: -cessation discussed here -per hospitalist/psych + tobacco - smoking cessation counseling. abnl cardiac markers: -total ck is elevated (2300, trending up, today's pending) as well as ck mb but ckmb index is normal. trop x3 WNL -these lab values are not consistent with acs or myocardial injury; cpk likely skeletal muscle origin sec to sz (found foaming at the mouth per son) (-not on statin per ER home med list) -renal fxn normal, ck trending down cardiac denson remains stable
[2017-01-16 12:29] VITALS: BP 110/84; PULSE 83; TEMP 98
== END 2017-01-16 10:52 | disposition home or self-care (01) | DRG 917 ==
LOC: FER 08:30 → FM/S 13:48 → J4W 23:45
PROVIDERS: ADMIT Internal Medicine; ATTEND Nurse Practitioner Family
PROC: 5A09357 Assistance with Respiratory Ventilation, Less than 24 Consecutive Hours, Continuous Positive Airway Pressure (ICD-10-PCS; principal; 2017-01-09)
DX: T40.3X1A Poisoning by methadone, accidental (unintentional), initial encounter (principal); J96.22 Acute and chronic respiratory failure with hypercapnia; G93.41 Metabolic encephalopathy; M62.82 Rhabdomyolysis; F11.20 Opioid dependence, uncomplicated; Y92.009 Unspecified place in unspecified non-institutional (private) residence as the place of occurrence of the external cause; R56.9 Unspecified convulsions; I10 Essential (primary) hypertension; E78.5 Hyperlipidemia, unspecified; R10.13 Epigastric pain; F17.210 Nicotine dependence, cigarettes, uncomplicated; Z86.73 Personal history of transient ischemic attack (TIA), and cerebral infarction without residual deficits; R11.2 Nausea with vomiting, unspecified; R94.31 Abnormal electrocardiogram [ECG] [EKG]; J44.9 Chronic obstructive pulmonary disease, unspecified; E83.52 Hypercalcemia
CPT/HCPCS: 36415; 36600; 70450-TC; 71010-TC; 80048; 80053; 80185; 80307; 81003; 82550; 82553; 82803; 83605; 83690; 83735; 84100; 84132; 84484; 85025; 87040; 93005; 93010; 94640; 94660; 94761; 99284-25; J1644

== ENCOUNTER → 2019-07-07 | Emergency (ER) | payer BC, OTHER ==
[~2019-07-07] MED LIST: DIPHTH,PERTUSS(ACELL),TET 0.5 ML DISP.SYRIN IM ONE; FAMOTIDINE 20 MG/50 ML IVPB 20 MG/50 ML MG IVPB ONE; HYDROCHLOROTHIAZIDE 25 MG TABLET (FP) ONE; HYDROCHLOROTHIAZIDE 25 MG TABLET (FP) PO ONE; MAG HYDROX/AL HYDROX/SIMETH -MYLANTA- ORAL SUSPENSION PO ONE; MAG HYDROX/AL HYDROX/SIMETH 30 ML UNIT-DOSE CUP ONE; ONDANSETRON 4 MG/2 ML VIAL IVPUSH ONE; RAMIPRIL 5 MG CAPSULE (FP) PO ONE; SODIUM CHLORIDE 0.9% 500 ML INFUS.BAG IV ONE; amLODIPine BESYLATE 10 MG TABLET (FP) PO ONE; amLODIPine BESYLATE 5 MG TABLET (FP) ONE
--- NOTE | 2019-07-07 15:41 | PDOC ---
History of Present Illness - General Chief Complaint: Blood Pressure Problem Stated Complaint: HYPERTENSION,AND NAUSEA/VOMITING Time Seen by Provider: 07/07/19 15:40 History Source: Patient Exam Limitations: No Limitations - History of Present Illness Initial Comments: 07/07/19 16:23 Sue Alford is a 54yF w PMHx HTN, CVA (no deficits), seizure, chronic opioid abuse (off methadone) presenting w HTN, vomiting, diarrhea. Has had nausea, vomiting, diarrhea for past 3d. Associated epigastric discomfort from vomiting. Unable to take HTN medication as a result. Today went to urgent clinic, found to have high BP, given IV fluids, zofran, told to go to ED for further eval. Denies fever/chills, vision change, headache, chest pain, urinary changes. Cut R hand on dirty metal can few weeks ago. Doesnt remember last tetanus shot. No deficits of hand sensation/movement. Also got scratched by cat on abdomen few days ago, cat fully vaccinated. Past History - Past Medical History Allergies/Adverse Reactions: Allergies Allergy/AdvReac Type Severity Reaction Status Date / Time morphine Allergy Mild Itching Verified 09/09/16 01:02 Home Medications: Ambulatory Orders Amlodipine Besylate [Norvasc -] 10 mg PO DAILY #30 tablet 01/16/17 Hydrochlorothiazide 25 mg PO DAILY #30 tablet 01/16/17 Ramipril [Altace] 10 mg PO DAILY #30 tab 01/16/17 Anemia: No Asthma: No Cancer: No Cardiac Disorders: Yes (STOKE) CVA: No COPD: No CHF: No Dementia: No Diabetes: No GI Disorders: Yes (abdominal pain) Disorders: Yes (GALLSTONES) HTN: Yes Hypercholesterolemia: Yes Liver Disease: No Psychiatric Problems: Yes Seizures: No Thyroid Disease: Yes (NODULES - NO [place]) - Surgical History Abdominal Surgery: No Appendectomy: Yes Cardiac Surgery: No Cholecystectomy: No Lung Surgery: No Neurologic Surgery: Yes (NECK SX) Orthopedic Surgery: No - Reproductive History Tubal Ligation: Yes - Psycho Social/Smoking Cessation Hx Smoking Status: Yes Smoking History: Current every day smoker Have you smoked in the past 12 months: Yes Number of Cigarettes Smoked Daily: 20 Cigars Per Day: 20 'Breaking Loose' booklet given: 07/10/15 Hx Alcohol Use: Yes (DAILY) Drug/Substance Use Hx: Yes (MARIJUANA) Substance Use Type: None Hx Substance Use Treatment: No Review of Systems - Review of Systems Constitutional: No: Chills, Fever HEENTM: No: Eye Pain, Recent change in vision, Nose Pain, Hearing Loss, Throat Pain Respiratory: No: Cough, Shortness of Breath Cardiac (ROS): No: Chest Pain, Lightheadedness, Palpitations ABD/GI: Yes: Diarrhea, Nausea, Vomiting. No: Abdominal Distended, Constipated : No: Burning, Dysuria, Discharge, Frequency, Flank Pain, Hematuria Musculoskeletal: No: Back Pain, Muscle Pain, Muscle Weakness Integumentary: No: Bruising, Dryness, Erythema Neurological: No: Headache, Seizure, Tingling Psychiatric: No: Anxiety, Depression Endocrine: No: Excessive Sweating, Flushing, Intolerance to Cold, Intolerance to Heat Hematologic/Lymphatic: No: Anemia, Blood Clots *Physical Exam - Physical Exam General Appearance: Yes: Nourished, Appropriately Dressed, Mild Distress HEENT: positive: EOMI, STEWART, Normal Voice, Hearing Grossly Normal. negative: Scleral Icterus (R), Scleral Icterus (L), Nasal Congestion, Rhinorrhea Respiratory/Chest: positive: Lungs Clear, Normal Breath Sounds. negative: Chest Tender, Respiratory Distress, Crackles, Rales, Rhonchi, Stridor, Wheezing Cardiovascular: positive: Regular Rhythm, Regular Rate, S1, S2. negative: Edema , Murmur Gastrointestinal/Abdominal: positive: Normal Bowel Sounds, Flat, Soft, Other ( RLQ non tender/erythematous cat scratch). negative: Tender, Organomegaly, Distended, Guarding, Rebound, Tenderness, Hernia, Mass Extremity: positive: Other (R hand no lacerations/abrasions. Not tender/ erythematous. 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 negative: Numbness, Sensory Deficit, Confused, Disoriented Medical Decision Making - Medical Decision Making 07/07/19 16:27 CBC CMP trop EKG HCTZ, ramipril, norvasc, tdap 1L NS, pepcid, maalox, zofran --- Sueosvaldo Alford is a 54yF w PMHx HTN, CVA (no deficits), seizure, chronic opioid abuse (off methadone) presenting w HTN, vomiting, diarrhea likely d/t gastroenteritis and hypertensive urgency d/t medication noncompliance. R hand cut by dirty can did not show any abrasions/lacerations, neurovascular intact. Pt given HCTZ, norvasc, TDap, maalox. Pt refused EKG and eloped after refusing IV access. Discharge - Discharge Information Problems reviewed: Yes Clinical Impression/Diagnosis: Gastroenteritis, Hypertensive urgency Condition: Stable Disposition: AGAINST MEDICAL ADVICE - Admission No - Follow up/Referral - Patient Discharge Instructions Patient Printed Discharge Instructions: DI for Viral Gastroenteritis -- Adult Additional Instructions: You were seen for high blood pressure, vomiting, and diarrhea. You were given medication for your blood pressure and nausea. Please follow up with your primary care doctor regarding your symptoms. Drink lots of water and continue taking your medication Come back to the ED if you are unable to keep fluids down, worsening dehydration , or have a fever. - Post Discharge Activity
[2019-07-07 15:54] VITALS: BP 188/113; PULSE 108; TEMP 97.7; BMI 38.9
--- NOTE | 2019-07-07 16:58 | PDOC ---
Attending Attestation - Resident Resident Name: Cortez Aguila - ED Attending Attestation I have performed the following: I have examined & evaluated the patient, The case was reviewed & discussed with the resident, I agree w/resident's findings & plan, Exceptions are as noted - HPI HPI: 07/07/19 16:54 54 F with h/o HTN, CVA, Sz, opioid dependence, presenting with N+V+D. Pt reports 3 days of GI symptoms. She endorses epigastric pain associated with vomiting. Pt went to urgent care today and was given IVF and zofran. However, she was found to be hypertensive and sent to ED for further evaluation. Pt states that she has not been able to take her home meds for 3 days due to vomiting. - Physicial Exam PE: 07/07/19 16:57 "GENERAL: Awake, alert, and fully oriented, in no acute distress. HEAD: No signs of trauma EYES: PERRLA, EOMI, sclera anicteric, conjunctiva clear ENT: Auricles normal inspection, hearing grossly normal, nares patent, oropharynx clear without exudates. Moist mucosa NECK: Nontender, no stepoffs, Normal ROM, supple, no lymphadenopathy, JVD, or masses LUNGS: Breath sounds equal, clear to auscultation bilaterally. No wheezes, and no crackles HEART: Regular rate and rhythm, normal S1 and S2, no murmurs, rubs or gallops ABDOMEN: + LUQ TTP, normoactive bowel sounds. No guarding, no rebound. No masses EXTREMITIES: Normal range of motion, no edema. No clubbing or cyanosis. No cords, erythema, or tenderness NEUROLOGICAL: Cranial nerves II through XII intact. 5/5 strength and sensation in all extremities, Normal speech, normal gait, normal cerebellar function SKIN: Warm, Dry, normal turgor, no rashes or lesions noted. - Medical Decision Making 07/07/19 16:57 54 F with N+V+D, likely 2/2 gastroenteritis. Pt also hypertensive, likely 2/2 inability to tolerate her PO meds. - Labs, trop, lipase - EKG - IVF, GI cocktail - Home BP meds 07/07/19 17:20 IV attempted by nurse and MD unsuccessfully. Pt refusing additional attempts to start IV, refusing butterfly for bloodwork. Pt refused EKG. Pt does not wish to stay any longer, wishes to leave AMA The patient is clinically sober, free from distracting injury, appears to have intact insight and judgment and reason and in my opinion has the capacity to make decisions. The patient presented with nausea, vomiting, hypertension. I have explained that I am concerned that this may represent heart attack or other serious medical issue; they have verbalized an understanding of my concerns. I have discussed the need for bloodwork and possible admission to the hospital to get more information about potential causes of the patients symptoms. I have told the patient that if they leave and have chest pain or shortness of breath, they could get much worse, could become critically ill, and could possibly become disabled or . I have offered to give the patient more pain medication. I have asked them to stay in the hospital. The patient is not willing to allow further IV attempts. She is unwilling to stay overnight for monitoring. She is refusing any further care and is leaving against medical advice. I am unable to convince the patient to stay, I have asked them to return as soon as possible to complete their evaluation. I have answered all their questions
== END | disposition left against medical advice (07) ==
LOC: FER 15:35
PROC: 3E0234Z Introduction of Serum, Toxoid and Vaccine into Muscle, Percutaneous Approach (ICD-10-PCS; principal; 2019-07-07)
DX: K52.9 Noninfective gastroenteritis and colitis, unspecified (principal); I16.0 Hypertensive urgency; I10 Essential (primary) hypertension; Z86.73 Personal history of transient ischemic attack (TIA), and cerebral infarction without residual deficits; R56.9 Unspecified convulsions; F11.10 Opioid abuse, uncomplicated
CPT/HCPCS: 90715; 99282-25